=== PATIENT | female | born 1940 | race Caucasian/White ===

== ENCOUNTER 2017-09-01 18:07 | Inpatient (IN) | payer OTHER ==
--- NOTE | 2017-09-01 19:04 | PDOC ---
History of Present Illness - General Chief Complaint: Coffee Ground Emesis Stated Complaint: coffee ground Time Seen by Provider: 09/01/17 19:03 - History of Present Illness Initial Comments: 09/01/17 19:28 Ms. Morgan is a 76 yo female w/ pmh of dementia, alzheimer's, anxiety, and major depressive disorder who presents from [facility] after reported 2 episodes of dark vomiting earlier today. Upon history she alternates between reporting stomach pain and saying that she feels no pain. She vomited dark watery colored coffee ground emesis during history onto the floor. The patient denies chest pain, shortness of breath, headache and dizziness. Denies fever, chills, diarrhea and constipation. Denies dysuria, frequency, urgency and hematuria . Allergies: NKDA Past History - Past Medical History Allergies/Adverse Reactions: Allergies Allergy/AdvReac Type Severity Reaction Status Date / Time No Known Allergies Allergy Verified 09/01/17 20:12 - Suicide/Smoking/Psychosocial Hx Smoking History: Unknown if ever smoked Have you smoked in the past 12 months: No Hx Alcohol Use: No Drug/Substance Use Hx: No Review of Systems - Review of Systems Comments:: 09/01/17 19:43 GENERAL/CONSTITUTIONAL: No fever or chills. No weakness. HEAD, EYES, EARS, NOSE AND THROAT: No change in vision. No ear pain or discharge. No sore throat. CARDIOVASCULAR: No chest pain or shortness of breath RESPIRATORY: No cough, wheezing, or hemoptysis. GASTROINTESTINAL: +Vomiting ealier today. Unclear if complicated by nausea or not. No reported diarrhea or constipation. GENITOURINARY: No dysuria, frequency, or change in urination. MUSCULOSKELETAL: No joint or muscle swelling or pain. No neck or back pain. SKIN: No rash NEUROLOGIC: No headache, vertigo, loss of consciousness, or change in strength/ sensation. ENDOCRINE: No increased thirst. No abnormal weight change HEMATOLOGIC/LYMPHATIC: No anemia, easy bleeding, or history of blood clots. ALLERGIC/IMMUNOLOGIC: No hives or skin allergy. *Physical Exam - Vital Signs Last Vital Signs Temp Pulse Resp BP Pulse Ox 134/78 96 09/01/17 18:29 09/01/17 18:29 - Physical Exam Comments: 09/01/17 19:43 GENERAL: Awake, alert, and oriented to baseline per son, in no acute distress HEAD: No signs of trauma, normocephalic, atraumatic EYES: PERRLA, EOMI, sclera anicteric, conjunctiva clear ENT: Auricles normal inspection, hearing grossly normal, nares patent, oropharynx clear without exudates. Moist mucosa NECK: Normal ROM, supple, no lymphadenopathy, JVD, or masses LUNGS: No distress, speaks full sentences, clear to auscultation bilaterally HEART: Regular rate and rhythm, normal S1 and S2, no murmurs, rubs or gallops, peripheral pulses normal and equal bilaterally. ABDOMEN: Soft, nontender, normoactive bowel sounds. No guarding, no rebound. No masses EXTREMITIES: Normal inspection, Normal range of motion, no edema. No clubbing or cyanosis. NEUROLOGICAL: Cranial nerves II through XII grossly intact. Normal speech, normal gait, no focal sensorimotor deficits SKIN: Warm, Dry, normal turgor, no rashes or lesions noted. ED Treatment Course - LABORATORY CBC & Chemistry Diagram: 09/01/17 19:36 09/01/17 21:41 Medical Decision Making - Medical Decision Making 09/01/17 20:17 Ms. Morgan is a 76 yo female w/ pmh as described who presents w/ symptoms concerning for upper GI bleed. Pre-op labs sent - stool occult blood negative. 09/01/17 22:22 Labs grossly wnl as below. Admitting patient for GI bleed workup inpatient. Laboratory Results - last 24 hr 09/01/1718 18 19:36 19:36 19:36 WBC 11.7 H RBC 4.67 Hgb 14.0 Hct 43.4 MCV 92.8 MCH 30.0 MCHC 32.3 RDW 14.1 Plt Count 250 MPV 9.3 Neutrophils % No Result Required. Neutrophils % (Manual) 93.0 H* Lymphocytes % No Result Required. Lymphocytes % (Manual) 5.0 L Monocytes % (Manual) 2 L Platelet Estimate Adequate Platelet Comment No clotting detected PT with INR 12.00 H INR 1.06 PTT (Actin FS) 29.8 Sodium Cancelled Potassium Cancelled Chloride Cancelled Carbon Dioxide Cancelled Anion Gap Cancelled BUN Cancelled Creatinine Cancelled Creat Clearance w eGFR Cancelled Random Glucose Cancelled Calcium Cancelled Total Bilirubin Cancelled AST Cancelled ALT Cancelled Alkaline Phosphatase Cancelled Total Protein Cancelled Albumin Cancelled Stool Occult Blood Blood Type Antibody Screen 09/01/17 09/01/17 09/01/17 19:36 19:40 21:41 WBC RBC Hgb Hct MCV MCH MCHC RDW Plt Count MPV Neutrophils % Neutrophils % (Manual) Lymphocytes % Lymphocytes % (Manual) Monocytes % (Manual) Platelet Estimate Platelet Comment PT with INR INR PTT (Actin FS) Sodium 143 Potassium 4.0 Chloride 106 Carbon Dioxide 31 Anion Gap 6 L BUN 14 Creatinine 0.9 Creat Clearance w eGFR > 60 Random Glucose 176 H Calcium 8.5 Total Bilirubin 0.6 AST 16 ALT 13 Alkaline Phosphatase 68 Total Protein 6.6 Albumin 3.8 Stool Occult Blood Negative Blood Type O POSITIVE Antibody Screen Negative *DC/Admit/Observation/Transfer Diagnosis at time of Disposition: Upper GI bleed - Discharge Dispostion Admit: Yes - Referrals Referrals: Shankar Arreguin [Primary Care Provider] - - Patient Instructions - Post Discharge Activity
--- NOTE | 2017-09-01 19:10 | PDOC ---
Attending Attestation - Resident Resident Name: caleb
[2017-09-01 19:42] LABS: WHITE BLOOD COUNT 11.7 K/mm3 (4.0-10.0)
[2017-09-01 19:48] LABS: HEMATOCRIT 43.4 % (32.4-45.2); MCHC 32.3 g/dl (32.0-36.0); MEAN CELL VOLUME 92.8 fl (80-96); MEAN PLT VOLUME 9.3 fl (7.5-11.1); PLATELET COUNT 250 K/MM3 (134-434); RBC 4.67 M/mm3 (3.60-5.2); RDW 14.1 % (11.6-15.6)
[2017-09-01] MEDS ORDERED: PANTOPRAZOLE SODIUM 40 MG VIAL IVPB ONE (20:01)
[2017-09-01] MEDS ORDERED: PANTOPRAZOLE SODIUM 80 MG in SODIUM CHLORIDE 100 ML IVPB SCH (20:15)
[2017-09-01 20:19] LABS: INR 1.06 (0.82-1.09)
[2017-09-01] MEDS ORDERED: ONDANSETRON 4 MG/2 ML VIAL IVPUSH ONE (20:19)
[2017-09-01 20:22] LABS: ACTIVATED PTT 29.8 SECONDS (26.9-34.4)
[2017-09-01] MEDS ORDERED: ONDANSETRON 4 MG/2 ML VIAL ONE (20:30)
[2017-09-01 21:37] LABS: PLATELET ESTIMATE ADEQUATE
[2017-09-01] MEDS: PANTOPRAZOLE SODIUM 160 MG in DEXTROSE 5%-WATER - 290 ML IVPB SCH (21:39)
[2017-09-01 22:11] LABS: ALBUMIN 3.8 g/dl (3.4-5.0); ANION GAP 6 (8-16); BILIRUBIN,TOTAL 0.6 mg/dL (0.2-1.0); BLOOD UREA NITROGEN 14 mg/dL (7-18); CALCIUM 8.5 mg/dL (8.5-10.1); CHLORIDE 106 mmol/L (98-107); CO2 31 mmol/L (21-32); CREATININE 0.9 mg/dL (0.55-1.02); GLUCOSE,RANDOM 176 mg/dL (74-106); SGPT/ALT 13 U/L (12-78); SODIUM 143 mmol/L (136-145); TOT PROT 6.6 g/dl (6.4-8.2)
[2017-09-01 22:12] LABS: ALK PHOS 68 U/L (45-117)
[2017-09-01 22:14] LABS: SGOT/AST 16 U/L (15-37)
--- NOTE | 2017-09-01 22:40 | PN ---
Teaching Attending Note Name of Resident: Shaye Ag ATTENDING PHYSICIAN STATEMENT I saw and evaluated the patient. I reviewed the resident's note and discussed the case with the resident. I agree with the resident's findings and plan as documented. SUBJECTIVE: 76 F with pmhx. of dementia, alzheimer's anxiety, and MDD who presents from [facility] after two episodes of dark vomiting. Unable to obtain any history from patient due to dementia. OBJECTIVE: Physical: VS: Vital Signs Period Temp Pulse Resp BP Sys/Guan Pulse Ox Last 24 Hr 134/78 96 GEN: NAD, Resting in bed, AAOx3 HEENT: NCAT, PERRL, throat without erythema or exudates CARD: RRR S1,S2 RESP: CTAB ABD: BSx4, NTD to palpation EXT: - C/C/E RECTAL: Refused CBCD WBC 11.7 K/mm3 (4.0-10.0) H 09/01/17 19:36 RBC 4.67 M/mm3 (3.60-5.2) 09/01/17 19:36 Hgb 14.0 GM/dL (10.7-15.3) 09/01/17 19:36 Hct 43.4 % (32.4-45.2) 09/01/17 19:36 MCV 92.8 fl (80-96) 09/01/17 19:36 MCHC 32.3 g/dl (32.0-36.0) 09/01/17 19:36 RDW 14.1 % (11.6-15.6) 09/01/17 19:36 Plt Count 250 K/MM3 (134-434) 09/01/17 19:36 MPV 9.3 fl (7.5-11.1) 09/01/17 19:36 CMP Sodium 143 mmol/L (136-145) 09/01/17 21:41 Potassium 4.0 mmol/L (3.5-5.1) 09/01/17 21:41 Chloride 106 mmol/L (98-107) 09/01/17 21:41 Carbon Dioxide 31 mmol/L (21-32) 09/01/17 21:41 Anion Gap 6 (8-16) L 09/01/17 21:41 BUN 14 mg/dL (7-18) 09/01/17 21:41 Creatinine 0.9 mg/dL (0.55-1.02) 09/01/17 21:41 Creat Clearance w eGFR > 60 (>60) 09/01/17 21:41 Random Glucose 176 mg/dL (74-106) H 09/01/17 21:41 Calcium 8.5 mg/dL (8.5-10.1) 09/01/17 21:41 Total Bilirubin 0.6 mg/dL (0.2-1.0) 09/01/17 21:41 AST 16 U/L (15-37) 09/01/17 21:41 ALT 13 U/L (12-78) 09/01/17 21:41 Alkaline Phosphatase 68 U/L (45-117) 09/01/17 21:41 Total Protein 6.6 g/dl (6.4-8.2) 09/01/17 21:41 Albumin 3.8 g/dl (3.4-5.0) 09/01/17 21:41 CXR:PENDING EKG:NSR QtC 429, NO ST-T changes ASSESSMENT AND PLAN: 76 F with pmhx. of dementia, alzheimer's anxiety, and MDD who presents from [facility] after two episodes of dark vomiting, being admitted for UGIB 1.) UGIB? - NPO - 2 Large bore IV - Protonix GTT - CBC q 8 - Coags - Type & Screen - GI Consult 2.) Alzheimer'S Dementia - C/W Namenda/Donezepil 3.) MDD - C/W Lexapro Admit to [email or web address]
--- NOTE | 2017-09-01 23:11 | HP ---
CHIEF COMPLAINT: Coffee ground emesis x1 day PCP: Dr Trudi Chaparro HISTORY OF PRESENT ILLNESS: Pt is a poor historian, appears confused at baseline. 76 yo f with PMHx of dysphagia, dementia, alzheimer's, anxiety, MDD, insomnia, malignant neoplasm of breast, presenting from [facility] following 3 episodes of coffee ground emesis between 4.00-4.30pm today. Said to have had another episode of watery black vomit in the ED while being seen. Per ER resident, when he saw her, her sons were by her side. Pt appears confused , AAOx 1 (self) and is unable to provide history. Pt said that she did vomit and did not want her tummy to be touched. Pt is not noted to be on any anticoagulation. Per pt records from [facility]- She is DNR. Amaury Morgan (son) is emergency contact at [phone] and daughter (Nohelia Nolan)- [phone] ROS could not be obtained. ER course was notable for: (1) CMP, CBC (N-93,L-5), PT/INR, INR, PTT, CXR , FOBT--ve (2)Stable vitals (3) Pantoprazole iv then drip, zofran Recent Travel: PAST MEDICAL HISTORY: dysphagia, dementia, alzheimer's, anxiety, MDD, insomnia, malignant neoplasm of breast PAST SURGICAL HISTORY: Social History: Smoking: Alcohol: Drugs: Family History: Allergies No Known Allergies Allergy (Verified 09/01/17 20:12) HOME MEDICATIONS: REVIEW OF SYSTEMS : Not possible with pt's dementia with no one by bedside PHYSICAL EXAMINATION Vital Signs - 24 hr 09/01/17 18:29 Blood Pressure 134/78 O2 Sat by Pulse 96 Oximetry (%) GENERAL: Awake, alert, AAOx1 (person), confused, verbose. HEAD: Normal with no signs of trauma. EYES: Pupils equal, round and reactive to light, extraocular movements intact, sclera anicteric, conjunctiva clear. EARS, NOSE, THROAT: oropharynx clear without exudates. Moist mucous membranes, no obvious bleeding LUNGS: Breath sounds equal, clear to auscultation bilaterally. HEART: Regular rate and rhythm, normal S1 and S2 ABDOMEN: Soft, nontender, not distended, normoactive bowel sounds, no guarding, no rebound, no masses. MUSCULOSKELETAL: Normal range of motion at all joints. No bony deformities or tenderness. No CVA tenderness. UPPER EXTREMITIES: 2+ pulses, warm, well-perfused. No cyanosis. No clubbing. No peripheral edema. LOWER EXTREMITIES: 2+ pulses, warm, well-perfused. No calf tenderness. No peripheral edema. NEUROLOGICAL: Confused, pressured speech. gait not observed. PSYCHIATRIC: Confused and talkative Laboratory Results - last 24 hr 09/01/17 09/01/17 09/01/17 19:36 19:36 19:36 WBC 11.7 H RBC 4.67 Hgb 14.0 Hct 43.4 MCV 92.8 MCH 30.0 MCHC 32.3 RDW 14.1 Plt Count 250 MPV 9.3 Neutrophils % No Result Required. Neutrophils % (Manual) 93.0 H* Lymphocytes % No Result Required. Lymphocytes % (Manual) 5.0 L Monocytes % (Manual) 2 L Platelet Estimate Adequate Platelet Comment No clotting detected PT with INR 12.00 H INR 1.06 PTT (Actin FS) 29.8 Sodium Cancelled Potassium Cancelled Chloride Cancelled Carbon Dioxide Cancelled Anion Gap Cancelled BUN Cancelled Creatinine Cancelled Creat Clearance w eGFR Cancelled Random Glucose Cancelled Calcium Cancelled Total Bilirubin Cancelled AST Cancelled ALT Cancelled Alkaline Phosphatase Cancelled Total Protein Cancelled Albumin Cancelled Stool Occult Blood Blood Type Antibody Screen 09/01/1718 09/01/17 19:36 19:40 21:41 WBC RBC Hgb Hct MCV MCH MCHC RDW Plt Count MPV Neutrophils % Neutrophils % (Manual) Lymphocytes % Lymphocytes % (Manual) Monocytes % (Manual) Platelet Estimate Platelet Comment PT with INR INR PTT (Actin FS) Sodium 143 Potassium 4.0 Chloride 106 Carbon Dioxide 31 Anion Gap 6 L BUN 14 Creatinine 0.9 Creat Clearance w eGFR > 60 Random Glucose 176 H Calcium 8.5 Total Bilirubin 0.6 AST 16 ALT 13 Alkaline Phosphatase 68 Total Protein 6.6 Albumin 3.8 Stool Occult Blood Negative Blood Type O POSITIVE Antibody Screen Negative ASSESSMENT/PLAN: 76 yo f with PMHx of dysphagia, dementia, alzheimer's, anxiety, MDD, insomnia, malignant neoplasm of breast, presenting from [facility] following 3 episodes of coffee ground emesis between 4.00-4.30pm today UGI: Hx of 3 episodes of coffee ground emesis prior to presentation 1 episode of black liquid emesis at ED Prior hx could not be obtained FOBT- -ve NPO Stable vitals at presentation Iv Normal saline @75/hr Cont protonix gtt CBC Transfuse if Hgb <7 Type and screen GI consult- Dr Rey dysphagia: NPO for now dementia/alzheimer's: Namenda XR 28mg daily Donepezil 10mg daily Trazodone 25mg daily anxiety/MDD/insomnia melatonin 3mg HS Lorazepam 1mg HS Hx of malignant neoplasm of breast Monitor FEN: IV NS @75/hr NPO PPx: SCDs Hold heparin Dispo: Tele Code status- DNR Visit type - Emergency Visit Emergency Visit: Yes ED Registration Date: 09/01/17 Care time: The patient presented to the Emergency Department on the above date and was hospitalized for further evaluation of their emergent condition. - New Patient This patient is new to me today: Yes Date on this admission: 09/02/17 - Critical Care Critical Care patient: No
[2017-09-02] MEDS ORDERED: SODIUM CHLORIDE 1,000 ML IV SCH (01:00)
[2017-09-02] MEDS: SODIUM CHLORIDE 1,000 ML IV SCH (07:05)
--- NOTE | 2017-09-02 07:41 | MSN ---
Progress Note (short form) - Note Progress Note: Subjective: 76yo F with a history of Alzheimers dementia, MDD, anxiety disorder, dysphagia and malignant neoplasm of the breast who presented to ER from [facility] due to 3x coffee ground emesis and 1 episode of dark liquid emesis while in the ED. Patient was seen this morning. Patient is talkative, appears comfortable. Pleasant woman only alert to self. Patient said she had abdominal pain yesterday but feels better today and has no complaints. Objective: Last Vital Signs Temp Pulse Resp BP Pulse Ox 98.3 F 83 93/45 95 09/02/17 07:23 09/02/17 07:23 09/02/17 07:23 09/02/17 07:23 Intake & Output 08/30/17 08/31/17 09/01/17 09/02/17 23:59 23:59 23:59 23:59 Intake Total 100 Balance 100 Weight 150 lb General: Patient is alert and oriented only to self. Pleasant woman in no acute distress. HEENT: normocephalic, atraumatic. PERRL. Heart: RRR, no rubs, murmurs or gallops appreciated. Lungs: auscultated anteriorly and from the side, CTA b/l. no crackles or rhonci apprecaited. Abdomen: hyperactive bowel sounds throughout. soft, nontender to light palpation. tender to deep palpation on the upper quadrants. Extremities: 2+ pulses B/L on UE and LE. Could not follow commands for motor strength testing. sensation grossly intact throughout. No edema noted. CBC, BMP 09/02/17 07:18 Abnormal Lab Results 09/01/17 09/01/17 09/01/17 19:36 19:36 21:41 WBC 11.7 H Neutrophils % Neutrophils % (Manual) 93.0 H* Lymphocytes % Lymphocytes % (Manual) 5.0 L Monocytes % (Manual) 2 L PT with INR 12.00 H Anion Gap 6 L Random Glucose 176 H 09/02/17 07:18 WBC 11.5 H Neutrophils % 84.1 H Neutrophils % (Manual) Lymphocytes % 7.6 L Lymphocytes % (Manual) Monocytes % (Manual) PT with INR Anion Gap Random Glucose Imaging CXR 09/01/17: no acute pathology. prominent mediastinum. EKG 09/01: normal sinus. QTc 429 Home Medications Medication Instructions Recorded Acetaminophen [Tylenol] 650 mg PO Q6H PRN 09/02/17 Cholecalciferol (Vitamin D3) 1,000 unit PO DAILY 09/02/17 [Vitamin D3] Donepezil HCl [Aricept -] 10 mg PO HS 09/02/17 Escitalopram Oxalate [Lexapro -] 10 mg PO DAILY 09/02/17 LORazepam [Ativan] 1 mg PO PC 09/02/17 Melatonin 3 mg PO HS 09/02/17 Memantine HCl [Namenda Xr] 28 mg PO DAILY 09/02/17 Methyl Salicylate/Menth/Camph 120 gm TP DAILY 09/02/17 [Muscle Rub Ultra Str Cream] Mineral Oil/Hydrophil Petrolat 396 gm TP BID 09/02/17 [Aquaphor Ointment] Trazodone HCl 25 mg PO DAILY 09/02/17 Current Medications Cholecalciferol (Vitamin D3 -) 1,000 unit PO DAILY [facility] Donepezil HCl (Aricept -) 10 mg PO HS [facility] Escitalopram Oxalate (Lexapro -) 10 mg PO DAILY [facility] Pantoprazole Sodium 160 mg/ (Dextrose) 290 mls @ 14.5 mls/hr IVPB Q20H [facility] Last Admin: 09/01/17 21:39 Dose: 14.5 mls/hr Sodium Chloride (Normal Saline -) 1,000 mls @ 75 mls/hr IV ASDIR [facility] Lorazepam (Ativan -) 1 mg PO PC [facility] Melatonin (Melatonin) 3 mg PO HS [facility] Non-Formulary Medication (Memantine Hcl [Namenda Xr]) 28 mg PO DAILY [facility] Non-Formulary Medication (Methyl Salicylate/Menth/Camph [Muscle Rub Ultra Str Cream]) 120 gm TP DAILY [facility] Non-Formulary Medication (Mineral Oil/Hydrophil Petrolat [Aquaphor Ointment]) 396 gm TP BID [facility] Trazodone HCl (Desyrel -) 25 mg PO DAILY [facility] Assessment/ Plan: 76 yo F with a history of Alzheimers dementia, MDD, anxiety disorder, dysphagia and malignant neoplasm of the breast admitted for upper GI bleed. # dark emesis x3 secondary to upper GI bleed. - FOBT negative - protonix - bp stable, H&H stable. - GI consult - endoscopy with biopsy? # hyperglycemia - ISS, BGM # Alzheimers dementia - Namenda 28mg - Donepezil 10mg # anxiety/ MDD/ insomnia - lexapro 10mg - trazodone 12.5 mg - ativan 1mg - melatonin 3mg # FEN - F: NS @75mls/hr - E: wnl - N: NPO due to dysphagia. was on mechanical soft diet at [facility].
[2017-09-02 07:47] LABS: BASO % 0.1 % (0-2.0); HEMATOCRIT 40.8 % (32.4-45.2); HEMOGLOBIN 13.1 GM/dL (10.7-15.3); LYMPH % 7.6 % (8-40); MCH 29.9 pg (25.7-33.7); MCHC 32.1 g/dl (32.0-36.0); MEAN PLT VOLUME 8.3 fl (7.5-11.1); MONO % 8.2 % (3.8-10.2); NEUT % 84.1 % (42.8-82.8); PLATELET COUNT 246 K/MM3 (134-434); RBC 4.39 M/mm3 (3.60-5.2); WHITE BLOOD COUNT 11.5 K/mm3 (4.0-10.0)
[2017-09-02 08:05] LABS: CHLORIDE 105 mmol/L (98-107); POTASSIUM 3.5 mmol/L (3.5-5.1); SODIUM 144 mmol/L (136-145)
[2017-09-02 08:11] LABS: ALBUMIN 3.4 g/dl (3.4-5.0); ALK PHOS 62 U/L (45-117); ANION GAP 9 (8-16); BILIRUBIN,TOTAL 0.6 mg/dL (0.2-1.0); BLOOD UREA NITROGEN 18 mg/dL (7-18); CALCIUM 8.7 mg/dL (8.5-10.1); CO2 30 mmol/L (21-32); CREATININE 0.8 mg/dL (0.55-1.02); GLUCOSE,RANDOM 119 mg/dL (74-106); MAGNESIUM 3.2 mg/dL (1.8-2.4); PHOSPHOROUS 2.9 mg/dL (2.5-4.9); SGOT/AST 25 U/L (15-37); SGPT/ALT 15 U/L (12-78); TOT PROT 6.2 g/dl (6.4-8.2)
--- NOTE | 2017-09-02 08:53 | EKG ---
Test Reason : Blood Pressure : / mmHG Vent. Rate : 076 BPM Atrial Rate : 076 BPM P-R Int : 188 ms QRS Dur : 080 ms QT Int : 382 ms P-R-T Axes : 027 029 016 degrees QTc Int : 429 ms POOR DATA QUALITY, INTERPRETATION MAY BE ADVERSELY AFFECTED NORMAL SINUS RHYTHM NORMAL ECG NO PREVIOUS ECGS AVAILABLE Confirmed by Bro Snow MD ([id number]) on 09/02/2017 8:52:30 AM Referred By: Confirmed By:Bro Snow MD
[2017-09-02] MEDS ORDERED: LORazepam 0.5 MG TABLET ONE ×2 (08:56→13:52)
[2017-09-02] MEDS: LORazepam 1 MG TABLET PO SCH ×4 (09:06→22:22)
[2017-09-02] MEDS: ESCITALOPRAM OXALATE 10 MG TABLET (FP) PO SCH (09:06)
[2017-09-02] MEDS: CHOLECALCIFEROL (VITAMIN D3) 1,000 UNIT TABLET (FP) PO SCH (09:06)
[2017-09-02] MEDS: MINERAL OIL/PET HY-PHL TOPICAL OINTMENT 454 GM JAR TP SCH ×2 (09:45→22:28)
[2017-09-02] MEDS: traZODone HCL 50 MG TABLET (FP) PO SCH (09:45)
[2017-09-02] MEDS ORDERED: PATIENT'S OWN MEDICATION (NON-FORMULARY) (Memantine Hcl [Namenda Xr] 28 MG) PO SCH (10:00)
[2017-09-02 10:04] LABS: INR 1.07 (0.82-1.09); PROTHROMBIN TIME (PATIENT) 12.1 SEC (9.98-11.88)
[2017-09-02 10:06] LABS: ACTIVATED PTT 27.5 SECONDS (26.9-34.4)
--- NOTE | 2017-09-02 13:50 | CON.GI ---
Consult Consult Specialty:: GI: Dr. Johnston covering for Dr. Rey Referred by:: Hospitalist Reason for Consultation:: Vomiting - History of Present Illness Chief Complaint: Patient with dementia: She is confused. States that she was sick and feels better History of Present Illness: 76F transferred from [place] for coffee ground emesis. Patient has a history of dementia and tells me today that "she felt sick but feels better now". She said her stomach was bothering her before but no longer does. Initial Hgb was 14 yesterday afternoon, 13 this morning. her nurse described her stool as foul smelling. Her son Amaury believes that Ms. Morgan had a colonoscopy in the past but does not recall her having an upper endoscopy. - History Source History Provided By: Patient, Medical Record Limitations to Obtaining History: Dementia - Past Medical History Psych: Yes: Anxiety, Depression - Alcohol/Substance Use Hx Alcohol Use: Yes (occasional in past) History of Substance Use: reports: None - Smoking History Smoking history: Former smoker (in past) Have you smoked in the past 12 months: No - Social History Usual Living Arrangement: Skilled Nursing ADL: Support Services Place of : [facility] History of Recent Travel: No Home Medications - Allergies Allergies/Adverse Reactions: Allergies Allergy/AdvReac Type Severity Reaction Status Date / Time No Known Allergies Allergy Verified 09/01/17 20:12 - Home Medications Home Medications: Ambulatory Orders Acetaminophen [Tylenol] 650 mg PO Q6H PRN 09/02/17 Cholecalciferol (Vitamin D3) [Vitamin D3] 1,000 unit PO DAILY 09/02/17 Donepezil HCl [Aricept -] 10 mg PO HS 09/02/17 Escitalopram Oxalate [Lexapro -] 10 mg PO DAILY 09/02/17 LORazepam [Ativan] 1 mg PO PC 09/02/17 Melatonin 3 mg PO HS 09/02/17 Memantine HCl [Namenda Xr] 28 mg PO DAILY 09/02/17 Methyl Salicylate/Menth/Camph [Muscle Rub Ultra Str Cream] 120 gm TP DAILY 09/02 Mineral Oil/Hydrophil Petrolat [Aquaphor Ointment] 396 gm TP BID 09/02/17 Trazodone HCl 25 mg PO DAILY 09/02/17 Family Disease History - Family Disease History Family History: Unable to Obtain Review of Systems - Review of Systems Constitutional: denies: Chills, Fever Cardiovascular: denies: Chest Pain Respiratory: denies: Cough Gastrointestinal: reports: Abdominal Pain, Nausea, Vomiting. denies: Melena Physical Exam-GI Vital Signs: Vital Signs Temperature 98.1 F 09/02/17 08:07 Pulse Rate 78 09/02/17 08:07 Respiratory Rate 17 09/02/17 08:07 Blood Pressure 110/62 09/02/17 08:07 O2 Sat by Pulse Oximetry (%) 97 09/02/17 08:07 Constitutional: Yes: Calm Eyes: No: Sclera Icterus Cardiovascular: Yes: Regular Rate and Rhythm Respiratory: Yes: CTA Bilaterally Gastrointestinal Inspection: No: Distention ...Auscultate: Yes: Normoactive Bowel Sounds ...Palpate: No: Hepatomegaly, Splenomegaly, Tenderness ...Percussion: No: Tympanitic ...Rectal Exam: Yes: Other (No external lesion, dark brown stool in rectal vault , guaiac +) Edema: Yes (trace LE edema) Labs: CBC, BMP 09/02/17 07:18 09/02/17 07:18 INR, PTT INR 1.07 (0.82-1.09) 09/02/17 07:18 Imaging - Results Chest X-ray: Report Reviewed (prominent mediastinum with tracheal deviation to the right) Problem List - Problems (1) Coffee ground emesis Assessment/Plan: No further vomiting and patient appears comfortable Clear liquids IV hydration Ordered CT scan of the abdomen to assess for obstructive pattern Pending above, Upper endoscopy to be considered. Discussed plan with Amaury her son, via telephone. Discussed EGD followed potentially by colonoscopy. Discussed potential risks of the procedures like but not limited to bleeding, perforation requiring surgery to repair, infection and sedation medication effects all of which could be potentially life threatening. He has agreed to the procedures. Continue PPI therapy Finding of widened medistinum on admission CXR with tracheal deviation. ? unclear etiology or significance. D/W Dr. Capma. will eval futher prior to EGD. For CT scan chest Monitor H/H and for signs of active bleeding Code(s): K92.0 - HEMATEMESIS
[2017-09-02 14:58] LABS: BASO % 0.7 % (0-2.0); EOS % 0.5 % (0-4.5); HEMATOCRIT 40.1 % (32.4-45.2); HEMOGLOBIN 12.7 GM/dL (10.7-15.3); LYMPH % 13.3 % (8-40); MCH 29.4 pg (25.7-33.7); MCHC 31.5 g/dl (32.0-36.0); MEAN CELL VOLUME 93.1 fl (80-96); MEAN PLT VOLUME 7.9 fl (7.5-11.1); MONO % 8.8 % (3.8-10.2); NEUT % 76.7 % (42.8-82.8); PLATELET COUNT 222 K/MM3 (134-434); RBC 4.31 M/mm3 (3.60-5.2); WHITE BLOOD COUNT 12.6 K/mm3 (4.0-10.0)
[2017-09-02 15:58] VITALS: BMI 26.9
[2017-09-02] MEDS: PANTOPRAZOLE SODIUM 160 MG in DEXTROSE 5%-WATER - 290 ML IVPB SCH (18:35)
--- NOTE | 2017-09-02 19:29 | PN ---
Progress Note, Physician History of Present Illness: no further vomiting no distress - Current Medication List Current Medications: Active Medications Cholecalciferol (Vitamin D3 -) 1,000 unit PO DAILY [facility] Last Admin: 09/02/17 09:06 Dose: 1,000 unit Donepezil HCl (Aricept -) 10 mg PO HS [facility] Emollient Ointment (Aquaphor -) 1 applic TP BID [facility] Last Admin: 09/02/17 09:45 Dose: Not Given Escitalopram Oxalate (Lexapro -) 10 mg PO DAILY [facility] Last Admin: 09/02/17 09:06 Dose: 10 mg Pantoprazole Sodium 160 mg/ (Dextrose) 290 mls @ 14.5 mls/hr IVPB Q20H [facility] Last Admin: 09/02/17 18:35 Dose: 14.5 mls/hr Sodium Chloride (Normal Saline -) 1,000 mls @ 75 mls/hr IV ASDIR [facility] Last Admin: 09/02/17 07:05 Dose: 75 mls/hr Lorazepam (Ativan -) 1 mg PO PC [facility] Last Admin: 09/02/17 18:57 Dose: Not Given Melatonin (Melatonin) 3 mg PO HS [facility] Non-Formulary Medication (Memantine Hcl [Namenda Xr]) 28 mg PO DAILY [facility] Non-Formulary Medication (Methyl Salicylate/Menth/Camph [Muscle Rub Ultra Str Cream]) 120 gm TP DAILY [facility] Trazodone HCl (Desyrel -) 25 mg PO DAILY [facility] Last Admin: 09/02/17 09:45 Dose: 25 mg - Objective Vital Signs: Vital Signs Temperature 98.2 F 09/02/17 15:59 Pulse Rate 61 09/02/17 15:59 Respiratory Rate 15 09/02/17 15:59 Blood Pressure 93/67 09/02/17 15:59 O2 Sat by Pulse Oximetry (%) 93 L 09/02/17 15:43 Constitutional: Yes: No Distress Cardiovascular: Yes: Regular Rate and Rhythm Respiratory: Yes: CTA Bilaterally Gastrointestinal: Yes: Normal Bowel Sounds, Soft. No: Tenderness Edema: No Labs: CBC, BMP 09/02/17 14:48 09/02/17 07:18 INR, PTT INR 1.07 (0.82-1.09) 09/02/17 07:18 Problem List - Problems (1) Coffee ground emesis Code(s): K92.0 - HEMATEMESIS (2) Upper GI bleed Code(s): K92.2 - GASTROINTESTINAL HEMORRHAGE, UNSPECIFIED (3) Dementia Code(s): F03.90 - UNSPECIFIED DEMENTIA WITHOUT BEHAVIORAL DISTURBANCE Assessment/Plan NPO Iv fluids GI eval noted--- will need Endoscopy continue with PO meds CT ordered
[2017-09-02] MEDS ORDERED: PT OWN MED DRAWER 7, Y5N ONE (21:58)
[2017-09-02] MEDS: DONEPEZIL HCL 10 MG TABLET (FP) PO SCH (22:22)
[2017-09-02] MEDS: MELATONIN 1 MG TABLET PO SCH (22:58)
[2017-09-03 08:07] LABS: HEMOGLOBIN 12.5 GM/dL (10.7-15.3); MCHC 32.2 g/dl (32.0-36.0); MEAN CELL VOLUME 93.4 fl (80-96); MEAN PLT VOLUME 8.3 fl (7.5-11.1); PLATELET COUNT 205 K/MM3 (134-434); RBC 4.18 M/mm3 (3.60-5.2); RDW 14.3 % (11.6-15.6); WHITE BLOOD COUNT 8.2 K/mm3 (4.0-10.0)
[2017-09-03 08:38] LABS: CHLORIDE 106 mmol/L (98-107); POTASSIUM 3.7 mmol/L (3.5-5.1); SODIUM 144 mmol/L (136-145)
[2017-09-03 08:49] LABS: ALK PHOS 53 U/L (45-117); ANION GAP 9 (8-16); BILIRUBIN,TOTAL 0.8 mg/dL (0.2-1.0); BLOOD UREA NITROGEN 15 mg/dL (7-18); CALCIUM 8.3 mg/dL (8.5-10.1); CO2 29 mmol/L (21-32); CREATININE 0.8 mg/dL (0.55-1.02); GLUCOSE,RANDOM 91 mg/dL (74-106); SGOT/AST 20 U/L (15-37); SGPT/ALT 13 U/L (12-78); TOT PROT 5.5 g/dl (6.4-8.2)
[2017-09-03] MEDS ORDERED: PT OWN MED DRAWER 7, Y5N ONE (10:04)
[2017-09-03] MEDS: LORazepam 1 MG TABLET PO SCH ×3 (10:06→18:11)
[2017-09-03] MEDS: traZODone HCL 50 MG TABLET (FP) PO SCH (10:06)
[2017-09-03] MEDS: CHOLECALCIFEROL (VITAMIN D3) 1,000 UNIT TABLET (FP) PO SCH (10:07)
[2017-09-03] MEDS: ESCITALOPRAM OXALATE 10 MG TABLET (FP) PO SCH (10:07)
[2017-09-03] MEDS ORDERED: LIDOCAINE HCL/PF 1% SDV 5ML VIAL ONE (10:29)
[2017-09-03] MEDS ORDERED: PROPOFOL 20 ML ONE (10:29)
--- NOTE | 2017-09-03 10:40 | PN ---
Progress Note (short form) - Note Progress Note: CT scan not officially read yet however appears to be a large paraesophageal hernia. Discussed findings with her son Amaury. Discussed that surgeon will come to see her regarding this hernia. He also agreed that DNR will be suspended during procedure. Problem List - Problems (1) Coffee ground emesis Code(s): K92.0 - HEMATEMESIS
--- NOTE | 2017-09-03 11:09 | CONSULT ---
Consult Consult Specialty:: Surgery Reason for Consultation:: Paraesophageal hernia - History of Present Illness History of Present Illness: 76 female with coffee ground emesis Noted to have a paraesophageal hernia on CT No pain History difficult to attain due to medical comorbidities - History Source History Provided By: Patient, Medical Record Limitations to Obtaining History: Dementia - Past Medical History Psych: Yes: Anxiety, Depression - Alcohol/Substance Use Hx Alcohol Use: Yes (occasional in past) History of Substance Use: reports: None - Smoking History Smoking history: Former smoker Have you smoked in the past 12 months: No - Social History Usual Living Arrangement: Prison ADL: Support Services History of Recent Travel: No Home Medications - Allergies Allergies/Adverse Reactions: Allergies Allergy/AdvReac Type Severity Reaction Status Date / Time No Known Allergies Allergy Verified 09/01/17 20:12 - Home Medications Home Medications: Ambulatory Orders Acetaminophen [Tylenol] 650 mg PO Q6H PRN 09/02/17 Cholecalciferol (Vitamin D3) [Vitamin D3] 1,000 unit PO DAILY 09/02/17 Donepezil HCl [Aricept -] 10 mg PO HS 09/02/17 Escitalopram Oxalate [Lexapro -] 10 mg PO DAILY 09/02/17 LORazepam [Ativan] 1 mg PO PC 09/02/17 Melatonin 3 mg PO HS 09/02/17 Memantine HCl [Namenda Xr] 28 mg PO DAILY 09/02/17 Methyl Salicylate/Menth/Camph [Muscle Rub Ultra Str Cream] 120 gm TP DAILY 09/02 Mineral Oil/Hydrophil Petrolat [Aquaphor Ointment] 396 gm TP BID 09/02/17 Trazodone HCl 25 mg PO DAILY 09/02/17 Review of Systems Unable to obtain ROS, reason: Demetia Physical Exam Vital Signs: Vital Signs Temperature 98.7 F 09/03/17 07:00 Pulse Rate 79 09/03/17 07:00 Respiratory Rate 21 09/03/17 07:00 Blood Pressure 101/73 09/03/17 07:00 O2 Sat by Pulse Oximetry (%) 95 09/02/17 21:00 Constitutional: Yes: Calm Cardiovascular: Yes: WNL Respiratory: Yes: WNL Gastrointestinal: Yes: Soft. No: Distention, Tenderness, Tenderness, Rebound Neurological: Yes: Alert Labs: CBC, BMP 09/03/17 07:21 09/03/17 07:21 Imaging - Results Cat Scan: Report Reviewed, Image Reviewed Problem List - Problems (1) Paraesophageal hernia Code(s): K44.9 - DIAPHRAGMATIC HERNIA WITHOUT OBSTRUCTION OR GANGRENE Assessment/Plan Awaiting Will discuss with family regarding options
--- NOTE | 2017-09-03 11:37 | PN ---
Progress Note (short form) - Note Progress Note: EGD report placed in procedural section of physical chart and to be scanned into [employer] Problem List - Problems (1) Coffee ground emesis Code(s): K92.0 - HEMATEMESIS
--- NOTE | 2017-09-03 12:48 | PN ---
Progress Note, Physician Chief Complaint: came back form Endo No complaints - Current Medication List Current Medications: Active Medications Cholecalciferol (Vitamin D3 -) 1,000 unit PO DAILY [facility] Last Admin: 09/03/17 10:07 Dose: 1,000 unit Donepezil HCl (Aricept -) 10 mg PO HS [facility] Last Admin: 09/02/17 22:22 Dose: 10 mg Emollient Ointment (Aquaphor -) 1 applic TP BID [facility] Last Admin: 09/02/17 22:28 Dose: Not Given Escitalopram Oxalate (Lexapro -) 10 mg PO DAILY [facility] Last Admin: 09/03/17 10:07 Dose: 10 mg Sodium Chloride (Normal Saline -) 1,000 mls @ 75 mls/hr IV ASDIR [facility] Last Admin: 09/02/17 07:05 Dose: 75 mls/hr Lorazepam (Ativan -) 1 mg PO PC [facility] Last Admin: 09/03/17 10:06 Dose: 1 mg Melatonin (Melatonin) 3 mg PO HS [facility] Last Admin: 09/02/17 22:58 Dose: 3 mg Non-Formulary Medication (Memantine Hcl [Namenda Xr]) 28 mg PO DAILY [facility] Non-Formulary Medication (Methyl Salicylate/Menth/Camph [Muscle Rub Ultra Str Cream]) 120 gm TP DAILY [facility] Pantoprazole Sodium (Protonix -) 20 mg PO DAILY [facility] Trazodone HCl (Desyrel -) 25 mg PO DAILY [facility] Last Admin: 09/03/17 10:06 Dose: 25 mg - Objective Vital Signs: Vital Signs Temperature 98.4 F 09/03/17 12:22 Pulse Rate 53 L 09/03/17 12:22 Respiratory Rate 16 09/03/17 12:22 Blood Pressure 111/65 09/03/17 12:22 O2 Sat by Pulse Oximetry (%) 97 09/03/17 12:22 Constitutional: Yes: No Distress, Calm Cardiovascular: Yes: Regular Rate and Rhythm Respiratory: Yes: CTA Bilaterally Gastrointestinal: Yes: Normal Bowel Sounds, Soft. No: Tenderness Edema: No Labs: CBC, BMP 09/03/17 07:21 09/03/17 07:21 INR, PTT INR 1.07 (0.82-1.09) 09/02/17 07:18 Problem List - Problems (1) Coffee ground emesis Code(s): K92.0 - HEMATEMESIS (2) Paraesophageal hernia Code(s): K44.9 - DIAPHRAGMATIC HERNIA WITHOUT OBSTRUCTION OR GANGRENE (3) Upper GI bleed Code(s): K92.2 - GASTROINTESTINAL HEMORRHAGE, UNSPECIFIED Assessment/Plan PLAN pt has large hiatal hernia start diet - spoke with GI full liquid surgical eval continue with meds PPI
[2017-09-03] MEDS: MINERAL OIL/PET HY-PHL TOPICAL OINTMENT 454 GM JAR TP SCH ×2 (13:34→21:49)
--- NOTE | 2017-09-03 19:31 | PN ---
Progress Note (short form) - Note Progress Note: Discussed EGD findings with her son Amaury. He had a discussion with Dr. Castellanos regarding surgical repair of the paraesophageal hernia and they are opting for conservative therapy. We also discusssed that I found no bleeding source on her upper endoscopy to explain the blood noted in her stool. We discussed colonoscopy to exclude colon pathology such as bleeding blood vessel, polyps/ tumors of the colon such as colon cancer. We again discussed potential risks of the procedure like but not limited to bleeding, perforation requiring surgery to repair, infection, sedation medication effects all of which could be potentially life threatening. He stated that he would like his mother to get on her feet prior to committing her to another invasive procedure. I asked that he discuss things with his family. my contact information will be provided in the discharge plan if they decide to proceed. Problem List - Problems (1) Coffee ground emesis Code(s): K92.0 - HEMATEMESIS
[2017-09-03] MEDS: SODIUM CHLORIDE 1,000 ML IV SCH (21:47)
[2017-09-03] MEDS: MELATONIN 1 MG TABLET PO SCH (21:48)
[2017-09-03] MEDS: DONEPEZIL HCL 10 MG TABLET (FP) PO SCH (21:48)
--- NOTE | 2017-09-04 08:24 | PN ---
Progress Note (short form) - Note Progress Note: Had discussion with son and daughter regarding paraesophageal hernia and surgical options Due to her underlying age and medical comorbidities, they have opted to not have surgical repair and treat conservatively They understand the risks including strangulation, incarceration, perforation, obstruction and sepsis Vital Signs Period Temp Pulse Resp BP Sys/Guan Pulse Ox Last 24 Hr 98.0 F-99.2 F 53-78 15-20 109-136/61-80 95-97 Abd soft, NT, ND Continue conservative management Problem List - Problems (1) Paraesophageal hernia Code(s): K44.9 - DIAPHRAGMATIC HERNIA WITHOUT OBSTRUCTION OR GANGRENE
--- NOTE | 2017-09-04 09:39 | PN ---
Progress Note, Physician - Current Medication List Current Medications: Active Medications Cholecalciferol (Vitamin D3 -) 1,000 unit PO DAILY [facility] Last Admin: 09/03/17 10:07 Dose: 1,000 unit Donepezil HCl (Aricept -) 10 mg PO HS [facility] Last Admin: 09/03/17 21:48 Dose: 10 mg Emollient Ointment (Aquaphor -) 1 applic TP BID [facility] Last Admin: 09/03/17 21:49 Dose: 1 applic Escitalopram Oxalate (Lexapro -) 10 mg PO DAILY [facility] Last Admin: 09/03/17 10:07 Dose: 10 mg Sodium Chloride (Normal Saline -) 1,000 mls @ 75 mls/hr IV ASDIR [facility] Last Admin: 09/03/17 21:47 Dose: 75 mls/hr Lorazepam (Ativan -) 1 mg PO PC [facility] Last Admin: 09/03/17 18:11 Dose: 1 mg Melatonin (Melatonin) 3 mg PO HS [facility] Last Admin: 09/03/17 21:48 Dose: 3 mg Non-Formulary Medication (Memantine Hcl [Namenda Xr]) 28 mg PO DAILY [facility] Non-Formulary Medication (Methyl Salicylate/Menth/Camph [Muscle Rub Ultra Str Cream]) 120 gm TP DAILY [facility] Pantoprazole Sodium (Protonix -) 20 mg PO DAILY [facility] Trazodone HCl (Desyrel -) 25 mg PO DAILY [facility] Last Admin: 09/03/17 10:06 Dose: 25 mg - Objective Vital Signs: Vital Signs Temperature 98.7 F 09/04/17 05:59 Pulse Rate 73 09/04/17 05:59 Respiratory Rate 20 09/04/17 05:59 Blood Pressure 115/61 09/04/17 05:59 O2 Sat by Pulse Oximetry (%) 97 09/03/17 21:00 Labs: CBC, BMP 09/03/17 07:21 09/03/17 07:21 INR, PTT INR 1.07 (0.82-1.09) 09/02/17 07:18 Problem List - Problems (1) Coffee ground emesis Code(s): K92.0 - HEMATEMESIS (2) Upper GI bleed Code(s): K92.2 - GASTROINTESTINAL HEMORRHAGE, UNSPECIFIED (3) Dementia Code(s): F03.90 - UNSPECIFIED DEMENTIA WITHOUT BEHAVIORAL DISTURBANCE
--- NOTE | 2017-09-04 09:44 | DS ---
Physical Examination Vital Signs: Vital Signs Temperature 98.7 F 09/04/17 05:59 Pulse Rate 73 09/04/17 05:59 Respiratory Rate 20 09/04/17 05:59 Blood Pressure 115/61 09/04/17 05:59 O2 Sat by Pulse Oximetry (%) 97 09/03/17 21:00 Constitutional: Yes: No Distress, Calm Cardiovascular: Yes: Regular Rate and Rhythm Respiratory: Yes: CTA Bilaterally Gastrointestinal: Yes: Normal Bowel Sounds, Soft. No: Tenderness Edema: No Labs: CBC, BMP 09/03/17 07:21 09/03/17 07:21 Discharge Summary Reason For Visit: UPPER GASTROINTESTINAL HEMORRHAGE Current Active Problems Coffee ground emesis (Acute) Dementia (Acute) Paraesophageal hernia (Acute) Upper GI bleed (Acute) Hospital Course: Admitted for GI bleeding Seen by GI -- Ct abdomen done-- shows paraesophageal hernia-- Seen by Surgeon-- family does not want surgery-- conservative only EGD-- no ulcers, has hiatal hernia Small meals advised Protonix to continue CBC stable stable for dc to [place] - Instructions Referrals: Rylan Johnston DO [Staff Physician] - Shankar Arreguin [Primary Care Provider] - - Home Medications Comprehensive Discharge Medication List: Ambulatory Orders Acetaminophen [Tylenol] 650 mg PO Q6H PRN 09/02/17 Cholecalciferol (Vitamin D3) [Vitamin D3] 1,000 unit PO DAILY 09/02/17 Donepezil HCl [Aricept -] 10 mg PO HS 09/02/17 Escitalopram Oxalate [Lexapro -] 10 mg PO DAILY 09/02/17 LORazepam [Ativan] 1 mg PO PC 09/02/17 Melatonin 3 mg PO HS 09/02/17 Memantine HCl [Namenda Xr] 28 mg PO DAILY 09/02/17 Methyl Salicylate/Menth/Camph [Muscle Rub Ultra Str Cream] 120 gm TP DAILY 09/02 Mineral Oil/Hydrophil Petrolat [Aquaphor Ointment] 396 gm TP BID 09/02/17 Trazodone HCl 25 mg PO DAILY 09/02/17
[2017-09-04] MEDS: LORazepam 1 MG TABLET PO SCH (09:48)
[2017-09-04] MEDS: CHOLECALCIFEROL (VITAMIN D3) 1,000 UNIT TABLET (FP) PO SCH (09:48)
[2017-09-04] MEDS: ESCITALOPRAM OXALATE 10 MG TABLET (FP) PO SCH (09:49)
[2017-09-04] MEDS: MINERAL OIL/PET HY-PHL TOPICAL OINTMENT 454 GM JAR TP SCH (09:49)
[2017-09-04] MEDS: traZODone HCL 50 MG TABLET (FP) PO SCH (09:49)
[2017-09-04] MEDS ORDERED: PANTOPRAZOLE 20 MG TABLET (FP) PO SCH (10:00)
[2017-09-04 10:28] LABS: HEMATOCRIT 37.9 % (32.4-45.2); HEMOGLOBIN 12.4 GM/dL (10.7-15.3); MCH 30.2 pg (25.7-33.7); MCHC 32.7 g/dl (32.0-36.0); MEAN CELL VOLUME 92.4 fl (80-96); MEAN PLT VOLUME 8.1 fl (7.5-11.1); PLATELET COUNT 183 K/MM3 (134-434); RDW 14.1 % (11.6-15.6); WHITE BLOOD COUNT 6.1 K/mm3 (4.0-10.0)
[2017-09-04 15:18] VITALS: BP 114/57; PULSE 58; TEMP 97.8
== END 2017-09-04 16:25 | DRG 392 ==
LOC: JER 18:07 → JERBED 22:36 → J6S 09-02 15:48
PROVIDERS: ADMIT Internal Medicine; ATTEND Internal Medicine
PROC: 0DJ08ZZ Inspection of Upper Intestinal Tract, Via Natural or Artificial Opening Endoscopic (ICD-10-PCS; principal; 2017-09-03 12:00)
DX: K44.9 Diaphragmatic hernia without obstruction or gangrene (principal); K92.0 Hematemesis; K92.2 Gastrointestinal hemorrhage, unspecified; G30.9 Alzheimer's disease, unspecified; F02.80 Dementia in other diseases classified elsewhere, unspecified severity, without behavioral disturbance, psychotic disturbance, mood disturbance, and anxiety; F41.8 Other specified anxiety disorders; Z66 Do not resuscitate; R13.10 Dysphagia, unspecified; G47.09 Other insomnia; Z85.3 Personal history of malignant neoplasm of breast; Z87.891 Personal history of nicotine dependence; K29.80 Duodenitis without bleeding
CPT/HCPCS: 36415; 71045-TC-FY; 71250-TC; 74176-TC; 80053; 82272; 83735; 84100; 85025; 85027; 85610; 85730; 86850; 86900; 86901; 93005; 93010; 99285-25

== ENCOUNTER 2017-10-28 16:43 | Observation (INO) | payer OTHER, BC ==
[2017-10-28 17:05] VITALS: BMI 25.7
[2017-10-28] MEDS ORDERED: SODIUM CHLORIDE 1,000 ML IV STA (17:41)
--- NOTE | 2017-10-28 17:59 | PDOC ---
Attending Attestation - Resident Resident Name: Ilya Corrales - ED Attending Attestation I have performed the following: I have examined & evaluated the patient, The case was reviewed & discussed with the resident, I agree w/resident's findings & plan, Exceptions are as noted - HPI HPI: 10/28/17 17:56 77 yo female BIBA from [facility] for coffee ground emesis. PMH significant for GI bleed in Aug 2017. para esophageal hernia and family wanted no surgery only conservative measures - Physicial Exam PE: 10/29/17 01:[address] Corrales's PE - Medical Decision Making 10/29/17 01:54 Patient was admitted because she had 3 episodes of coffee-ground emesis despite being on Protonix chronically. Dr. Everett requested her admission and she will be admitted to [facility]
[2017-10-28 18:02] LABS: HEMATOCRIT 43.4 % (32.4-45.2); HEMOGLOBIN 14.4 GM/dL (10.7-15.3); MCH 30.7 pg (25.7-33.7); MCHC 33.2 g/dl (32.0-36.0); MEAN CELL VOLUME 92.7 fl (80-96); MEAN PLT VOLUME 8.7 fl (7.5-11.1); PLATELET COUNT 253 K/MM3 (134-434); RBC 4.68 M/mm3 (3.60-5.2); RDW 14.1 % (11.6-15.6)
--- NOTE | 2017-10-28 18:10 | PDOC ---
History of Present Illness - General Chief Complaint: Nausea/Vomiting Stated Complaint: VOMITING Time Seen by Provider: 10/28/17 17:10 History Source: Patient - History of Present Illness Initial Comments: 10/28/17 18:04 Ms. Morgan is a 76 yo female w/ pmh of severe dementia, alzheimer's, anxiety, and major depressive disorder who presents from [facility] after reported unknown number of episodes of coffee-ground earlier today. Patient currently asymptomatic. Was admitted and evaluated in this ED in August for the same symptoms and was found to have a large paraesophageal hernia. Family had declined surgery and patient was discharged on Protonix. Was sent by Dr. Everett to be admitted under dr. Alexander. Past History - Past Medical History Allergies/Adverse Reactions: Allergies Allergy/AdvReac Type Severity Reaction Status Date / Time No Known Allergies Allergy Verified 09/01/17 20:12 Home Medications: Ambulatory Orders Acetaminophen [Tylenol] 650 mg PO Q6H PRN 09/02/17 Cholecalciferol (Vitamin D3) [Vitamin D3] 1,000 unit PO DAILY 09/02/17 Donepezil HCl [Aricept -] 10 mg PO HS 09/02/17 Escitalopram Oxalate [Lexapro -] 10 mg PO DAILY 09/02/17 LORazepam [Ativan] 1 mg PO PC 09/02/17 Melatonin 3 mg PO HS 09/02/17 Memantine HCl [Namenda Xr] 28 mg PO DAILY 09/02/17 Methyl Salicylate/Menth/Camph [Muscle Rub Ultra Str Cream] 120 gm TP DAILY 09/02 Mineral Oil/Hydrophil Petrolat [Aquaphor Ointment] 396 gm TP BID 09/02/17 Pantoprazole Sodium [Protonix -] 20 mg PO DAILY #20 tablet.ec 09/04/17 Anemia: No Asthma: No Cancer: Yes (Breast) Cardiac Disorders: No CVA: No COPD: No DVT: No Dementia: Yes (Alzheimer's) Diabetes: No Dialysis: No GI Disorders: No Disorders: No HTN: No Hypercholesterolemia: No Kidney Stones: No Liver Disease: No Psychiatric Problems: Yes (Depression, Insomnia, Anxiety) Seizures: No Thyroid Disease: No Lung CA: No - Immunization History Immunization Up to Date: Yes - Suicide/Smoking/Psychosocial Hx Smoking History: Never smoked Have you smoked in the past 12 months: No Information on smoking cessation initiated: No Hx Alcohol Use: No Drug/Substance Use Hx: No Substance Use Type: None Review of Systems - Review of Systems Able to Perform ROS?: No (severe dementia) *Physical Exam - Vital Signs Last Vital Signs Temp Pulse Resp BP Pulse Ox 97.9 F 90 16 124/86 97 10/28/17 16:43 10/28/17 16:43 10/28/17 16:43 10/28/17 16:43 10/28/17 16:43 - Physical Exam General Appearance: Yes: Nourished, Appropriately Dressed. No: Apparent Distress HEENT: positive: EOMI, JOVON (pinpoint pupils) Neck: negative: Tender Respiratory/Chest: positive: Lungs Clear, Normal Breath Sounds. negative: Chest Tender, Respiratory Distress Cardiovascular: positive: Regular Rhythm, Regular Rate, S1, S2 Gastrointestinal/Abdominal: positive: Normal Bowel Sounds, Flat, Soft. negative : Tender Integumentary: negative: Bruising Neurologic: positive: Alert, Confused, Disoriented ED Treatment Course - LABORATORY CBC & Chemistry Diagram: 10/28/17 17:30 10/28/17 17:51 - RADIOLOGY Radiology Studies Ordered: Category Date Time Status CHEST X-RAY PORTABLE* [RAD] Stat Radiology 10/28/17 17:31 Ordered Medical Decision Making - Medical Decision Making 10/28/17 18:13 Repeat episode of coffee ground emesis due to paraesophargeoal hernia. Will assess anemia with basic labs 10/28/17 19:45 No anemia noted. H/H similar to labs drawn on 10/14 at [facility]. Will admit to hospitalist for observation. 10/28/17 19:48 Spoke to Patient's son about plan. Noted failure to thrive for the past week. *DC/Admit/Observation/Transfer Diagnosis at time of Disposition: Upper GI bleed, Paraesophageal hernia - Discharge Dispostion Admit: Yes - Referrals - Patient Instructions - Post Discharge Activity
[2017-10-28] MEDS ORDERED: PANTOPRAZOLE SODIUM 40 MG VIAL IVPUSH ONE (18:14)
[2017-10-28 18:24] LABS: ALBUMIN 3.4 g/dl (3.4-5.0); ANION GAP 5 (8-16); BILIRUBIN,TOTAL 0.3 mg/dL (0.2-1.0); BLOOD UREA NITROGEN 16 mg/dL (7-18); CALCIUM 8.5 mg/dL (8.5-10.1); CHLORIDE 106 mmol/L (98-107); CO2 31 mmol/L (21-32); CREATININE 0.9 mg/dL (0.55-1.02); GLUCOSE,RANDOM 156 mg/dL (74-106); POTASSIUM 3.9 mmol/L (3.5-5.1); SGOT/AST 14 U/L (15-37); SGPT/ALT 18 U/L (12-78); SODIUM 142 mmol/L (136-145); TOT PROT 6.6 g/dl (6.4-8.2)
[2017-10-28 18:25] LABS: ALK PHOS 68 U/L (45-117)
[2017-10-28] MEDS ORDERED: PANTOPRAZOLE SODIUM 40 MG/100 ML BAG IVPB ONE (18:37)
[2017-10-28 19:08] LABS: PLATELET ESTIMATE ADEQUATE
[2017-10-28] MEDS: DEXTROSE 5%-0.45% SALINE 1,000 ML IV SCH (20:47)
[2017-10-28 21:16] LABS: URINE APPEARANCE CLOUDY; URINE BILIRUBIN NEGATIVE (<2.0 mg/dL); URINE BLOOD NEGATIVE (NEGATIVE); URINE COLOR YELLOW; URINE GLUCOSE (UA) NEGATIVE (NEGATIVE); URINE KETONE NEGATIVE (NEGATIVE); URINE LEUK ESTERASE NEGATIVE (NEGATIVE); URINE NITRITE NEGATIVE (NEGATIVE)
[2017-10-28 21:18] LABS: URINE PROTEIN 1+ (NEGATIVE)
[2017-10-28 21:23] LABS: EPI CELLS RARE /HPF (FEW); URINE MUCUS RARE
--- NOTE | 2017-10-29 00:23 | HP ---
CHIEF COMPLAINT: Coffee Ground Emesis PCP: Dr Campa HISTORY OF PRESENT ILLNESS: This is a 77 y/o woman PMH Dementia, Alzheimer's, Anxiety, MDD, Breast Ca ( remission, 2016). Who presents to the ED from [facility] for evaluation of coffee ground emesis. Patient's son, at bedside, reports recent admission 08/2017 for same- large paraesophageal hernia. The family at the time declined surgical intervention. The son reports that the patient's appetite has decreased recently and that she is losing weight. He also states" my mom has fallen twice last week and is now using the wheelchair. The patient denies abdominal pain. Denies fever, chills, SOB, limited HPI secondary to Dementia ER course was notable for: (1) WBC 13.0, L- shift (2) (3) Recent Travel: None PAST MEDICAL HISTORY: See HPI PAST SURGICAL HISTORY: See HPI Social History: Smoking:Former Alcohol: None Drugs: None Resides at [facility] Family History: Non-contributory Allergies No Known Allergies Allergy (Verified 09/01/17 20:12) HOME MEDICATIONS: Home Medications Medication Instructions Recorded Acetaminophen [Tylenol] 650 mg PO Q6H PRN 09/02/17 Cholecalciferol (Vitamin D3) 1,000 unit PO DAILY 09/02/17 [Vitamin D3] Donepezil HCl [Aricept -] 10 mg PO HS 09/02/17 Escitalopram Oxalate [Lexapro -] 10 mg PO DAILY 09/02/17 LORazepam [Ativan] 1 mg PO PC 09/02/17 Melatonin 3 mg PO HS 09/02/17 Memantine HCl [Namenda Xr] 28 mg PO DAILY 09/02/17 Methyl Salicylate/Menth/Camph 120 gm TP DAILY 09/02/17 [Muscle Rub Ultra Str Cream] Mineral Oil/Hydrophil Petrolat 396 gm TP BID 09/02/17 [Aquaphor Ointment] Pantoprazole Sodium [Protonix -] 20 mg PO DAILY #20 tablet.ec 09/04/17 REVIEW OF SYSTEMS CONSTITUTIONAL: loss of appetite, weight change Absent: fever, chills, diaphoresis, generalized weakness, malaise HEENT: Absent: rhinorrhea, nasal congestion, throat pain, throat swelling, difficulty swallowing, mouth swelling, ear pain, eye pain, visual changes CARDIOVASCULAR: Absent: chest pain, syncope, palpitations, irregular heart rate, lightheadedness , peripheral edema RESPIRATORY: Absent: cough, shortness of breath, dyspnea with exertion, orthopnea, wheezing, stridor, hemoptysis GASTROINTESTINAL: coffee ground emesis Absent: abdominal pain, abdominal distension, nausea, diarrhea, constipation, melena, hematochezia GENITOURINARY: Absent: dysuria, frequency, urgency, hesitancy, hematuria, flank pain, genital pain MUSCULOSKELETAL: Absent: myalgia, arthralgia, joint swelling, back pain, neck pain SKIN: Absent: rash, itching, pallor HEMATOLOGIC/IMMUNOLOGIC: Absent: easy bleeding, easy bruising, lymphadenopathy, frequent infections ENDOCRINE: Absent: unexplained weight gain, unexplained weight loss, heat intolerance, cold intolerance NEUROLOGIC: unsteady gait Absent: headache, focal weakness or paresthesias, dizziness, seizure, mental status changes, bladder or bowel incontinence PSYCHIATRIC: Absent: anxiety, depression, suicidal or homicidal ideation, hallucinations. PHYSICAL EXAMINATION Vital Signs - 24 hr 10/28/17 10/28/17 10/28/17 16:43 20:34 22:59 Temperature 97.9 F 98.0 F Pulse Rate 90 Pulse Rate [ 81 Apical] Respiratory 16 16 Rate Blood Pressure 124/86 Blood Pressure 112/86 [Right Arm] O2 Sat by Pulse 97 98 98 Oximetry (%) GENERAL: Awake- at baseline, in no acute distress. HEAD: Normal with no signs of trauma. EYES: Pupils equal, round and reactive to light, extraocular movements intact, sclera anicteric, conjunctiva clear. No lid lag. EARS, NOSE, THROAT: Ears normal, nares patent, oropharynx clear without exudates. Dry mucous membranes. NECK: Normal range of motion, supple without lymphadenopathy, JVD, or masses. LUNGS: Breath sounds equal, clear to auscultation bilaterally. No wheezes, and no crackles. No accessory muscle use. HEART: Regular rate and rhythm, normal S1 and S2 without murmur, rub or gallop. ABDOMEN: Soft, nontender, not distended, hypoactive bowel sounds, no guarding, no rebound, no masses. No hepatomegaly or splenomegaly. MUSCULOSKELETAL: Normal range of motion at all joints. No bony deformities or tenderness. No CVA tenderness. UPPER EXTREMITIES: 2+ pulses, warm, well-perfused. No cyanosis. No clubbing. No peripheral edema. LOWER EXTREMITIES: 2+ pulses, warm, well-perfused. No calf tenderness. No peripheral edema. NEUROLOGICAL: Cranial nerves II-XII intact. Repetitive speech. Gait not observed. PSYCHIATRIC: Cooperative. Good eye contact. Appropriate mood and affect. SKIN: Warm, dry, normal turgor, no rashes or lesions noted, normal capillary refill. Laboratory Results - last 24 hr 10/28/17 10/28/17 10/28/17 17:30 17:30 17:51 WBC 13.0 H D RBC 4.68 Hgb 14.4 D Hct 43.4 MCV 92.7 MCH 30.7 MCHC 33.2 RDW 14.1 Plt Count 253 D MPV 8.7 Neutrophils % (Manual) 91.0 H* Band Neutrophils % 2.0 Lymphocytes % (Manual) 5.0 L Monocytes % (Manual) 2 L Platelet Estimate Adequate Platelet Comment No clumping noted Sodium 142 Potassium 3.9 Chloride 106 Carbon Dioxide 31 Anion Gap 5 L BUN 16 Creatinine 0.9 Creat Clearance w eGFR > 60 Random Glucose 156 H Calcium 8.5 Total Bilirubin 0.3 D AST 14 L ALT 18 Alkaline Phosphatase 68 Total Protein 6.6 Albumin 3.4 Urine Color Urine Appearance Urine pH Ur Specific [place] Urine Protein Urine Glucose (UA) Urine Ketones Urine Blood Urine Nitrite Urine Bilirubin Urine Urobilinogen Ur Leukocyte Esterase Urine WBC (Auto) Urine RBC (Auto) Ur Epithelial Cells Urine Mucus Blood Type O POSITIVE Antibody Screen Negative 10/28/17 21:12 WBC RBC Hgb Hct MCV MCH MCHC RDW Plt Count MPV Neutrophils % (Manual) Band Neutrophils % Lymphocytes % (Manual) Monocytes % (Manual) Platelet Estimate Platelet Comment Sodium Potassium Chloride Carbon Dioxide Anion Gap BUN Creatinine Creat Clearance w eGFR Random Glucose Calcium Total Bilirubin AST ALT Alkaline Phosphatase Total Protein Albumin Urine Color Yellow Urine Appearance Cloudy Urine pH 8.0 Ur Specific [place] 1.019 Urine Protein 1+ H Urine Glucose (UA) Negative Urine Ketones Negative Urine Blood Negative Urine Nitrite Negative Urine Bilirubin Negative Urine Urobilinogen 2.0 H Ur Leukocyte Esterase Negative Urine WBC (Auto) <1 Urine RBC (Auto) 3 Ur Epithelial Cells Rare Urine Mucus Rare Blood Type Antibody Screen ASSESSMENT/PLAN: 77 y/o woman placed on Observation for UGI Bleed, Failure to Thrive. Plan: 1. ?Upper GI Bleed - retirement staff reported patient having an episode of coffee ground emesis , patient has had no episodes in ED - hx of Upper GI Bleed, paraesophageal hernia - On exam- abdomen benign - H/H, vitals- wnl - Will repeat CBC and BMP in am - Will continue gentle IVF - Consider US or CT if condition worsens - Monitor vitals - NPO 2. Failure to Thrive - Likely due to advance Dementia/Alzheimer's vs MDD - Albumin- wnl - RD consult- nutritional eval - Swallow eval - IVF - Consider appetite stimulant 3. Dementia/Alzheimer's - Continue Namenda - Fall precautions 4. MDD/Anxiety - Continue Lexapro, Ativan 5. Breast Ca - completed chemo (remission. 2015) 6. Frequent Falls - Likely secondary to advance disease process - PT- gait strengthening, conditioning - Fall Precautions 7. FEN - D51/2NS@42cc/hr - Replete lyte prn - NPO 8. DVT ppx - OOB - SCDs - Consider AC if LOS > 48hrs Code Status: DNR Dispo: Observation Problem List - Problem (1) Coffee ground emesis Code(s): K92.0 - HEMATEMESIS (2) Paraesophageal hernia Code(s): K44.9 - DIAPHRAGMATIC HERNIA WITHOUT OBSTRUCTION OR GANGRENE (3) Decrease in appetite Code(s): R63.0 - ANOREXIA (4) Failure to thrive in adult Code(s): R62.7 - ADULT FAILURE TO THRIVE (5) Dementia Code(s): F03.90 - UNSPECIFIED DEMENTIA WITHOUT BEHAVIORAL DISTURBANCE (6) Anxiety Code(s): F41.9 - ANXIETY DISORDER, UNSPECIFIED (7) MDD (major depressive disorder) Code(s): F32.9 - MAJOR DEPRESSIVE DISORDER, SINGLE EPISODE, UNSPECIFIED (8) Breast CA Code(s): C50.919 - MALIGNANT NEOPLASM OF UNSP SITE OF UNSPECIFIED FEMALE BREAST (9) DVT prophylaxis Code(s): [id number] - Visit type - Emergency Visit Emergency Visit: Yes ED Registration Date: 10/28/17 Care time: The patient presented to the Emergency Department on the above date and was hospitalized for further evaluation of their emergent condition. - New Patient This patient is new to me today: Yes Date on this admission: 10/28/17 - Critical Care Critical Care patient: No Hospitalist Screening - Colonoscopy Questionnaire Colonoscopy Questionnaire: Colonoscopy Questionnaire - Patient: 50 - 75 years old and never had a screening colonoscopy: Unknown History of colon or rectal polyps, or CA: Unknown History of IBD, Crohn's disease or UC: Unknown History of abdominal radiation therapy as a child: Unknown - Relative: 1 with colon or rectal CA, or polyps at age 60 or younger: Unknown Colon or rectal CA diagnosed at age 45 or younger: Unknown Multiple relatives with colon or rectal CA: Unknown - Outcome: Screening Result: Negative Screen
[2017-10-29 08:01] LABS: BASO % 1.2 % (0-2.0); EOS % 1.3 % (0-4.5); HEMATOCRIT 36.5 % (32.4-45.2); HEMOGLOBIN 12.1 GM/dL (10.7-15.3); LYMPH % 18.4 % (8-40); MCH 30.6 pg (25.7-33.7); MCHC 33.1 g/dl (32.0-36.0); MEAN CELL VOLUME 92.3 fl (80-96); MEAN PLT VOLUME 8.4 fl (7.5-11.1); MONO % 9.2 % (3.8-10.2); NEUT % 69.9 % (42.8-82.8); PLATELET COUNT 204 K/MM3 (134-434); RBC 3.95 M/mm3 (3.60-5.2); RDW 14.2 % (11.6-15.6); WHITE BLOOD COUNT 9.2 K/mm3 (4.0-10.0)
[2017-10-29 08:30] LABS: ANION GAP 3 (8-16); BLOOD UREA NITROGEN 12 mg/dL (7-18); CALCIUM 7.8 mg/dL (8.5-10.1); CHLORIDE 111 mmol/L (98-107); CO2 31 mmol/L (21-32); GLUCOSE,RANDOM 89 mg/dL (74-106); SODIUM 145 mmol/L (136-145)
[2017-10-29 08:31] LABS: CREATININE 0.7 mg/dL (0.55-1.02)
--- NOTE | 2017-10-29 09:29 | EKG ---
Test Reason : Blood Pressure : / mmHG Vent. Rate : 094 BPM Atrial Rate : 094 BPM P-R Int : 152 ms QRS Dur : 082 ms QT Int : 362 ms P-R-T Axes : 015 016 -07 degrees QTc Int : 452 ms NORMAL SINUS RHYTHM POSSIBLE INFERIOR INFARCT , AGE UNDETERMINED ABNORMAL ECG WHEN COMPARED WITH ECG OF 01-SEP-2017 23:44, NO SIGNIFICANT CHANGE WAS FOUND Confirmed by MALENA BARAHONA, SUSIE ([id number]) on 10/29/2017 9:29:25 AM Referred By: Confirmed By:SUSIE GUY MD
[2017-10-29] MEDS ORDERED: PANTOPRAZOLE SODIUM 40 MG VIAL IVPUSH SCH (10:00)
--- NOTE | 2017-10-29 12:49 | PN ---
Progress Note (short form) - Note Progress Note: Events noted no vomiting here pt refusing to drink or eat advanced dementia , echolalia Vital Signs - 24 hr 10/28/17 10/28/17 10/29/17 20:34 22:59 02:12 Temperature 98.0 F 98.9 F Pulse Rate 75 Pulse Rate [ 81 Apical] Respiratory 16 22 Rate Blood Pressure 112/56 Blood Pressure 112/86 [Right Arm] O2 Sat by Pulse 98 98 Oximetry (%) 10/29/17 10/29/17 10/29/17 02:20 06:00 10:00 Temperature 98.8 F 98.7 F Pulse Rate 668 H 70 Pulse Rate [ Apical] Respiratory 20 20 Rate Blood Pressure 98/59 100/60 Blood Pressure [Right Arm] O2 Sat by Pulse 97 Oximetry (%) 10/29/17 10/29/17 12:00 14:21 Temperature 98.4 F Pulse Rate 82 Pulse Rate [ Apical] Respiratory 18 Rate Blood Pressure 120/73 Blood Pressure [Right Arm] O2 Sat by Pulse 94 L Oximetry (%) Current Medications Generic Name Dose Route Start Last Admin Trade Name Freq PRN Reason Stop Dose Admin Dextrose/Sodium Chloride 1,000 mls @ 42 mls/hr 10/28/17 20:45 10/28/17 20:47 D5-1/2ns - IV 42 mls/hr ASDIR VIC Administration Pantoprazole Sodium 40 mg 10/29/17 10:00 10/29/17 11:26 Protonix Iv IVPUSH 40 mg DAILY VIC Administration Laboratory Results - last 24 hr 10/28/17 10/28/17 10/28/17 17:30 17:30 17:51 WBC 13.0 H D RBC 4.68 Hgb 14.4 D Hct 43.4 MCV 92.7 MCH 30.7 MCHC 33.2 RDW 14.1 Plt Count 253 D MPV 8.7 Neutrophils % Neutrophils % (Manual) 91.0 H* Band Neutrophils % 2.0 Lymphocytes % Lymphocytes % (Manual) 5.0 L Monocytes % Monocytes % (Manual) 2 L Eosinophils % Basophils % Platelet Estimate Adequate Platelet Comment No clumping noted Sodium 142 Potassium 3.9 Chloride 106 Carbon Dioxide 31 Anion Gap 5 L BUN 16 Creatinine 0.9 Creat Clearance w eGFR > 60 Random Glucose 156 H Calcium 8.5 Total Bilirubin 0.3 D AST 14 L ALT 18 Alkaline Phosphatase 68 Total Protein 6.6 Albumin 3.4 Urine Color Urine Appearance Urine pH Ur Specific [place] Urine Protein Urine Glucose (UA) Urine Ketones Urine Blood Urine Nitrite Urine Bilirubin Urine Urobilinogen Ur Leukocyte Esterase Urine WBC (Auto) Urine RBC (Auto) Ur Epithelial Cells Urine Mucus Blood Type O POSITIVE Antibody Screen Negative 10/28/17 10/29/17 10/29/17 21:12 07:52 07:52 WBC 9.2 RBC 3.95 Hgb 12.1 D Hct 36.5 D MCV 92.3 MCH 30.6 MCHC 33.1 RDW 14.2 Plt Count 204 MPV 8.4 Neutrophils % 69.9 Neutrophils % (Manual) Band Neutrophils % Lymphocytes % 18.4 D Lymphocytes % (Manual) Monocytes % 9.2 Monocytes % (Manual) Eosinophils % 1.3 D Basophils % 1.2 Platelet Estimate Platelet Comment Sodium 145 Potassium 4.0 Chloride 111 H Carbon Dioxide 31 Anion Gap 3 L BUN 12 Creatinine 0.7 Creat Clearance w eGFR Random Glucose 89 Calcium 7.8 L Total Bilirubin AST ALT Alkaline Phosphatase Total Protein Albumin Urine Color Yellow Urine Appearance Cloudy Urine pH 8.0 Ur Specific [place] 1.019 Urine Protein 1+ H Urine Glucose (UA) Negative Urine Ketones Negative Urine Blood Negative Urine Nitrite Negative Urine Bilirubin Negative Urine Urobilinogen 2.0 H Ur Leukocyte Esterase Negative Urine WBC (Auto) <1 Urine RBC (Auto) 3 Ur Epithelial Cells Rare Urine Mucus Rare Blood Type Antibody Screen S1 S2 RRR Lungs clear Abd- soft, NT No edema A/P Upper GI bleed Dementia-- advanced Dehydration -- no signs or symptoms of infectious source -- iv fluids -- protonix -- likely dehydrated -- GI eval -- spoke with daughter-- I read through pt's HCP, power of staff attorney, DNR papers -- pt is DNR, did not want artificial nutrition -- palliative eval -- start full liquid diet
--- NOTE | 2017-10-29 16:07 | CONSULT ---
Admitting History and Physical - Past Medical History Psych: Yes: Anxiety, Depression - Advance Directives Advance Directives: Yes: DNR - Smoking History Smoking history: Never smoked Have you smoked in the past 12 months: No - Alcohol/Substance Use Hx Alcohol Use: No History of Substance Use: reports: None - Social History ADL: Support Services History of Recent Travel: No History - Admission Reason For Visit: DEMENTIA,COFFEE GROUNDEMESIS PARAESOPHAGEAL HERNIA - Hearing Hearing: Normal Hearing Aide: No With Patient: No Speech Evaluation - Communication Primary Language: ARABIC Communication: Yes: Within Normal Limits, Simple Responses (secondary to advanced dementia) - Speech Production Apraxia: No Able to Make Needs Known: Yes: Moderately Impaired (unreliable responses.) Intelligibility: Yes: WNL - Speech Characteristics Voice Loudness: Normal Voice Pitch: Yes: Normal Voice Phonatory-based Quality: Yes: Normal Speech Pattern: Normal Nasal Resonance: Normal Articulation: Yes: Precise Rate of Speech: Too Fast - Language/Auditory Comprehension Follows: Yes: 1 Stage Simple Commands (WFL), 2 Stage Simple Commands (WFL) Observation: Able to respond to yes/no queries: Yes (unreliable ), Yes/No Confusion: Yes, Comprehends Conversational Speech: Yes, Benefits from Slow Speech: No, Benefits from Repetiton: Yes, Benefits from Increased Volume of Speech: No - Language/Verbal Expression Able to Communicate Wants and Needs: Yes: Moderately Impaired Functional Communication Status: Yes: Moderately Impaired Aware of Errors: No Attempts to Correct Errors: No Use of Gestures: No Written Expression: not examined Oral Expression: WFL for speech but language is impaired Reading Comprehension: not examined Calculations: not examined Attention: Yes: Intact - Memory/Perception long term care social worker Memory: Yes: Moderately Impaired Short Term Memory: Yes: Moderately Impaired - Swallow Evaluation/Bedside Assessment Current Nutritional Intake: Clear Liquids Oral Secretions: Yes: WFL Tracheostomy Present: No Patient on Ventilator: No Dentition: Yes: Adequate Facial Symmetry at Rest: Symmetrical Facial Symmetry on Retraction: Symmetrical Facial Movement: Controlled Sensation: Normal Facial Comment: WFL for speech and swallowing purposes. Jaw Position: Closed at Rest Against Resistance Opening: Normal Against Resistance Closing: Normal Pucker Lips: Normal Smile: Normal Lips, Comment: WFL for speech and swallowing purposes. Lingual Movement: Normal Lingual Speed of Movement: Normal Lingual Movement Strgth Against Opposition: Normal Lingual Movement Characteristics: Normal Lingual Comment: WFL for speech and swallowing purposes. Soft Palate Description: Normal Color, Normal Arch Hard Palate Description: Normal Color, Normal Arch Gag Reflex: Strong Bite Reflex: Present Velopharyngeal Movement: Normal Laryngeal Elevation: WFL Laryngeal Movement: Able to Palpate Needs Assistance: Yes Rate of Intake: Slow/Holding Bolus Size: Small Labial Seal: WFL Chewing: WFL Oral Prep Time: WFL A-P Transit: WFL Timing of Swallow: WFL Coughing/Throat Clear: No Change in Voice: No Other Findings/Remarks: 77 yo female seen at bedside for swallow eval to rule dysphagia. Pt is verbal A &Ox1 with confusion secondary to advanced dementia. Unreliable y/n response and states that "she is fine" and "wants to go home to her parents." Pt is cooperative and able to follow some directives with verbal and gestural prompts. Pt admitted to [facility] for vomiting (emesis) from [facility] where she was consuming a mechanical soft solids and thin liquids. Chart review indicates that pt has been losing weight over the past few months and paraesophagia hernia (family does not want intervention). Pt given po trials of puree and mech soft with full assistance revealed reduced acceptance (pt refusal initially). minimal chewing, adequate transport and pharyngeal swallow appears timely. No cough before or after the swallow observed. Limited trials as patient refused. Thin liquids trials vai cup and straw with full assistance were unremarkable of dysphagia and/or aspiration at this time. Recommendations - Speech Evaluation, Impression/Plan Impression: Pt presents with mild to moderate oral preparation phase dysphagia with pureed and mechanical soft solids. No evidence of aspiration with solids and liquids at this time. Limited sample trial. Speech is WFL but language comprehension and expression are reduced secondary to advanced dementia. Mcfp Goals: tolerate the least restrictive diet without s/s of aspiration Short Term Goals: tolerate purees, mech soft and thin liquids without s/s of aspiration. - Dysphagia Impressions/Plan Swallowing Skills: Impaired (secondary to food refusal mild to moderate.) Dysphagia Impressions: Mild Impairment, Moderate Impairment, Refused PO Trials *Silent aspiration: cannot be R/O at bedside Dysphagia Treatment Plan: Small Bites, Elevate HOB during feed Dysphagia Evaluation Summary: Trial pureed solids with thin liquids as tolerated. Crush meds in puree. Encourage po intake with small meals. Monitor intake. Consider adding high calorie nutritional supplements to diet. Results given verbally to charger Regino and to pcp via chart. Recommendations: Modified Barium Swallow (consider to determine silent aspiration and esophageal emptying.), MBS w Esophagus, Other - Recommendations Diet Consistency: Dysphagia Pureed Medication Administration: Crushed with applesauce Liquids: Thin Liquids Supplement: Ensure (consider n)
--- NOTE | 2017-10-29 19:05 | PN ---
Progress Note (short form) - Note Progress Note: patient recently seen by Dr Mata 08/2017, pleae call him for further evaluation. Thank you
--- NOTE | 2017-10-29 21:22 | CON.GI ---
Consult Consult Specialty:: GI Referred by:: Dr. Hesham Campa Reason for Consultation:: Coffee Ground emesis - History of Present Illness Chief Complaint: Patient w/ dementia, Poor historian. Believes that she is here due to fall History of Present Illness: 77F transferred from [place] for coffee ground emesis. Patient has a history of dementia and tells me today that "she is here because she fell". She also said that she had pain on her left side "before" and that it went away. There has been no vomiting since admission and she denies abdominal pain. She was admitted in 08/31 for a similar presentation along with upper abdominal discomfort. CXR at the time revealed a widened mediastinum. follow-up Ct scan of the chest and abdomen revealed a large paraesophageal hernia. Upper endoscopy 09/04/17 revealed a large paraesophageal hernia altering gastric anatomy, no evidence of gastric outlet obstruction and mild duodenitis in the duodenal bulb. the coffee ground emesis at that time was felt to be secondary to retained gastric content as opposed to GI bleed. she was noted to be guaiac negative on that admission as well and colonoscopy following EGD was deferred by her family. She was evaluated by surgery Dr. Castellanos at that time as well to discuss with family correction of the symptomatic paraesophageal hernia however the family declined. Her son Amaury believes that Ms. Morgan had a colonoscopy in the past. Weight loss is described as well as Ms. Morgan refusing to eat at times. She currently denies abdominal pain. Her Hgb today is 12.1 and appears to be around her baseline. - History Source History Provided By: Patient, Family Member, Medical Record Limitations to Obtaining History: Poor Historian - Past Medical History [employer] DEVELOPER: Yes: Dementia Psych: Yes: Anxiety, Depression - Alcohol/Substance Use Hx Alcohol Use: Yes (occasional in past) History of Substance Use: reports: None - Smoking History Smoking history: Never smoked Have you smoked in the past 12 months: No - Social History Usual Living Arrangement: Long-Term ADL: Support Services History of Recent Travel: No Home Medications - Allergies Allergies/Adverse Reactions: Allergies Allergy/AdvReac Type Severity Reaction Status Date / Time No Known Allergies Allergy Verified 09/01/17 20:12 - Home Medications Home Medications: Ambulatory Orders Acetaminophen [Tylenol] 650 mg PO Q6H PRN 09/02/17 Cholecalciferol (Vitamin D3) [Vitamin D3] 1,000 unit PO DAILY 09/02/17 Donepezil HCl [Aricept -] 10 mg PO HS 09/02/17 Escitalopram Oxalate [Lexapro -] 10 mg PO DAILY 09/02/17 LORazepam [Ativan] 1 mg PO PC 09/02/17 Melatonin 3 mg PO HS 09/02/17 Memantine HCl [Namenda Xr] 28 mg PO DAILY 09/02/17 Methyl Salicylate/Menth/Camph [Muscle Rub Ultra Str Cream] 120 gm TP DAILY 09/02 Mineral Oil/Hydrophil Petrolat [Aquaphor Ointment] 396 gm TP BID 09/02/17 Pantoprazole Sodium [Protonix -] 20 mg PO DAILY #20 tablet.ec 09/04/17 Family Disease History - Family Disease History Family History: Unable to Obtain Review of Systems - Review of Systems Constitutional: denies: Chills Cardiovascular: denies: Chest Pain Gastrointestinal: reports: Abdominal Pain (states pain in LUQ previously but inconsistent with her answers), Vomiting (resolved). denies: Melena, Rectal Bleeding, Vomiting Blood Physical Exam-GI Vital Signs: Vital Signs Temperature 98.4 F 10/29/17 18:00 Pulse Rate 77 10/29/17 18:00 Respiratory Rate 20 10/29/17 18:00 Blood Pressure 132/76 10/29/17 18:00 O2 Sat by Pulse Oximetry (%) 94 L 10/29/17 12:00 Constitutional: Yes: Calm Eyes: No: Sclera Icterus Cardiovascular: Yes: Regular Rate and Rhythm. No: Murmur Respiratory: Yes: CTA Bilaterally Gastrointestinal Inspection: No: Distention, Scars ...Auscultate: Yes: Normoactive Bowel Sounds ...Palpate: No: Firm/Rigid, Tenderness ...Percussion: Yes: Other (No succussion splash). No: Tympanitic Edema: No (No LE edema) Neurological: Yes: Alert Labs: CBC, BMP 10/29/17 07:52 10/29/17 07:52 Laboratory Tests 10/28/17 10/29/17 17:30 07:52 WBC 13.0 H D 9.2 Imaging - Results X-ray: Other (Large hernia in the retrocardiac space) Problem List - Problems (1) Coffee ground vomiting Assessment/Plan: Suspect that this is secondary to Ms. Morgan's significant paraesophageal hernia. This is not a primary upper GI bleeding event. What is causing her to refuse to eat may be multifactorial. It is unclear but she has described intermittent upper abdominal pain at times so it's uncertain if this is making her afraid to eat. She also carries a diagnosis of dementia and her unwillingness to eat can reflect progression of this disease state as well. I spoke with her son Amaury who states that despite her dementia had a healthy appetite up until this past Jul/Aug. While consideration could be made to discuss correction of the hernia, there is no guarantee that it would fix her reluctancy to eat. Therefore not only would hernia repair need to be discussed with Ms. Morgan's family, but surgical G-tube placement (paraesophageal hernia precludes PEG) as well. In reading the chart it appears as though Ms. Morgan's wishes were to not be maintained through means of artificial nutrition. This will need to be clarified with the family. Dr. Castellanos evaluated Ms. Morgan on previous admission. Consider surgical evaluation to give an opinion regarding the above and discuss things with the family. Full liquid diet for now Protonix 20mg daily Code(s): K92.0 - HEMATEMESIS
[2017-10-29 22:08] LABS: INR 1.21 (0.82-1.09); PROTHROMBIN TIME (PATIENT) 13.7 SEC (9.98-11.88)
[2017-10-29] MEDS: DEXTROSE 5%-0.45% SALINE 1,000 ML IV SCH (22:17)
[2017-10-30 08:02] LABS: HEMATOCRIT 39.5 % (32.4-45.2); HEMOGLOBIN 13.1 GM/dL (10.7-15.3); MCH 30.6 pg (25.7-33.7); MCHC 33.3 g/dl (32.0-36.0); MEAN CELL VOLUME 92.1 fl (80-96); PLATELET COUNT 220 K/MM3 (134-434); RBC 4.29 M/mm3 (3.60-5.2); RDW 13.9 % (11.6-15.6); WHITE BLOOD COUNT 8.6 K/mm3 (4.0-10.0)
[2017-10-30] MEDS ORDERED: PANTOPRAZOLE 20 MG TABLET (FP) PO SCH (10:00)
--- NOTE | 2017-10-30 12:21 | PN ---
Progress Note, Physician Chief Complaint: family at bedside pt eating ice cream, jello and drinks orange juice No distress not vomiting - Current Medication List Current Medications: Active Medications Dextrose/Sodium Chloride (D5-1/2ns -) 1,000 mls @ 42 mls/hr IV ASDIR VIC Last Admin: 10/29/17 22:17 Dose: 42 mls/hr Pantoprazole Sodium (Protonix Iv) 40 mg IVPUSH DAILY [facility] - Objective Vital Signs: Vital Signs Temperature 97.7 F 10/30/17 10:00 Pulse Rate 80 10/30/17 10:00 Respiratory Rate 20 10/30/17 10:00 Blood Pressure 103/67 10/30/17 10:00 O2 Sat by Pulse Oximetry (%) 94 L 10/30/17 04:00 Constitutional: Yes: No Distress Cardiovascular: Yes: Regular Rate and Rhythm Respiratory: Yes: Diminished Gastrointestinal: Yes: Normal Bowel Sounds, Soft. No: Tenderness Edema: No Labs: CBC, BMP 10/30/17 06:30 10/29/17 07:52 INR, PTT INR 1.21 (0.82-1.09) H 10/29/17 21:00 Problem List - Problems (1) Anxiety Code(s): F41.9 - ANXIETY DISORDER, UNSPECIFIED (2) Breast CA Code(s): C50.919 - MALIGNANT NEOPLASM OF UNSP SITE OF UNSPECIFIED FEMALE BREAST (3) Coffee ground vomiting Code(s): K92.0 - HEMATEMESIS (4) Decrease in appetite Code(s): R63.0 - ANOREXIA (5) Failure to thrive in adult Code(s): R62.7 - ADULT FAILURE TO THRIVE (6) MDD (major depressive disorder) Code(s): F32.9 - MAJOR DEPRESSIVE DISORDER, SINGLE EPISODE, UNSPECIFIED (7) Paraesophageal hernia Code(s): K44.9 - DIAPHRAGMATIC HERNIA WITHOUT OBSTRUCTION OR GANGRENE Assessment/Plan PLAN HB stable continue full liquid diet-- pt prefers sweets -- check CT chest , abd/pelvis GI eval appreciated -- family declines GT placement awaiting surgical eval iv fluids add Remeron for appetite'
[2017-10-30] MEDS: PANTOPRAZOLE SODIUM 40 MG VIAL IVPUSH SCH (12:35)
--- NOTE | 2017-10-30 12:47 | CONSULT ---
<LunaNusrat ReglaJosephine - Last Filed: 10/30/17 13:37> - Consultation REQUESTING PROVIDER: CONSULT REQUEST: We have been asked to surgically evaluate this patient for paraesophageal hernia. PCP:Aston Campa HISTORY OF PRESENT ILLNESS: 77 yo female from [facility] admitted for several episodes of coffee ground emesis. Patient was recently admitted in August of 2017 for Upper GI bleed and was found to have large paraesophageal hernia. During that admission, surgical intervention and non-operative treatment options were discussed with the family (Amaury Morgan (son) is emergency contact at [phone] and daughter (Nohelia Nolan)- [phone] ) and they decided on conservative management only. Patient states she "feels fine" now and denies any nausea or abdominal pain. PMHx: paraesophageal hernia dysphagia, dementia, alzheimer's, anxiety, MDD, insomnia, malignant neoplasm of breast PSHx: Home Medications Medication Instructions Recorded Acetaminophen [Tylenol] 650 mg PO Q6H PRN 09/02/17 Cholecalciferol (Vitamin D3) 1,000 unit PO DAILY 09/02/17 [Vitamin D3] Donepezil HCl [Aricept -] 10 mg PO HS 09/02/17 Escitalopram Oxalate [Lexapro -] 10 mg PO DAILY 09/02/17 LORazepam [Ativan] 1 mg PO PC 09/02/17 Melatonin 3 mg PO HS 09/02/17 Memantine HCl [Namenda Xr] 28 mg PO DAILY 09/02/17 Methyl Salicylate/Menth/Camph 120 gm TP DAILY 09/02/17 [Muscle Rub Ultra Str Cream] Mineral Oil/Hydrophil Petrolat 396 gm TP BID 09/02/17 [Aquaphor Ointment] Pantoprazole Sodium [Protonix -] 20 mg PO DAILY #20 tablet.ec 09/04/17 Allergies Allergy/AdvReac Type Severity Reaction Status Date / Time No Known Allergies Allergy Verified 09/01/17 20:12 REVIEW OF SYSTEMS: unable to obtain 2/2 dementia PHYSICAL EXAM: GENERAL: Awake, alert, A&O to self only HEAD: Normal with no signs of trauma. EYES: sclera anicteric, conjunctiva clear. NECK: supple without lymphadenopathy, JVD, or masses. LUNGS: unlabored resp on RA, No accessory muscle use. HEART: Regular rate and rhythm. No murmurs ABDOMEN: Soft, nontender, not distended, normoactive bowel sounds, no guarding, no rebound, no masses. No organomegaly. MUSCULOSKELETAL: Normal ROM at all joints. No bony deformities or tenderness. No CVA tenderness. UPPER EXTREMITIES:moving without restriction, warm, well-perfused. NEUROLOGICAL: Normal speech, gait not observed. PSYCH: Cooperative. Good eye contact. Appropriate mood and affect. SKIN: Warm, dry, normal turgor, no rashes or lesions noted. Vital Signs Temperature 97.7 F 10/30/17 10:00 Pulse Rate 80 10/30/17 10:00 Respiratory Rate 20 10/30/17 10:00 Blood Pressure 103/67 10/30/17 10:00 O2 Sat by Pulse Oximetry (%) 94 L 10/30/17 04:00 Lab Results WBC 8.6 K/mm3 (4.0-10.0) 10/30/17 06:30 RBC 4.29 M/mm3 (3.60-5.2) 10/30/17 06:30 Hgb 13.1 GM/dL (10.7-15.3) 10/30/17 06:30 Hct 39.5 % (32.4-45.2) 10/30/17 06:30 MCV 92.1 fl (80-96) 10/30/17 06:30 MCHC 33.3 g/dl (32.0-36.0) 10/30/17 06:30 RDW 13.9 % (11.6-15.6) 10/30/17 06:30 Plt Count 220 K/MM3 (134-434) 10/30/17 06:30 Sodium 145 mmol/L (136-145) 10/29/17 07:52 Potassium 4.0 mmol/L (3.5-5.1) 10/29/17 07:52 Chloride 111 mmol/L (98-107) H 10/29/17 07:52 Carbon Dioxide 31 mmol/L (21-32) 10/29/17 07:52 Anion Gap 3 (8-16) L 10/29/17 07:52 BUN 12 mg/dL (7-18) 10/29/17 07:52 Creatinine 0.7 mg/dL (0.55-1.02) 10/29/17 07:52 Random Glucose 89 mg/dL (74-106) 10/29/17 07:52 Calcium 7.8 mg/dL (8.5-10.1) L 10/29/17 07:52 Blood Type O POSITIVE 10/28/17 17:30 Antibody Screen Negative 10/28/17 17:30 INR 1.21 (0.82-1.09) H 10/29/17 21:00 Problem List - Problems (1) Paraesophageal hernia Assessment/Plan: 1) Dr Castellanos to discuss treatment options and further management with the family this afternoon. 2) Medical optimization 3) DVT and GI prophylaxis Code(s): K44.9 - DIAPHRAGMATIC HERNIA WITHOUT OBSTRUCTION OR GANGRENE Visit type - Case Type Case Type: ED Admission - Emergency Emergency Visit: Yes ED Registration Date: 10/28/17 Care time: The patient presented to the Emergency Department on the above date and was hospitalized for further evaluation of their emergent condition. - New patient This patient is new to me today: Yes Date on this admission: 10/30/17 <Bro Castellanos - Last Filed: 10/31/17 10:19> - Consultation REQUESTING PROVIDER: CONSULT REQUEST: We have been asked to surgically evaluate this patient for ( specify). PCP:Aston Campa HISTORY OF PRESENT ILLNESS: PMHx: PSHx: Home Medications Medication Instructions Recorded Acetaminophen [Tylenol] 650 mg PO Q6H PRN 09/02/17 Cholecalciferol (Vitamin D3) 1,000 unit PO DAILY 09/02/17 [Vitamin D3] Donepezil HCl [Aricept -] 10 mg PO HS 09/02/17 Escitalopram Oxalate [Lexapro -] 10 mg PO DAILY 09/02/17 LORazepam [Ativan] 1 mg PO PC 09/02/17 Melatonin 3 mg PO HS 09/02/17 Memantine HCl [Namenda Xr] 28 mg PO DAILY 09/02/17 Methyl Salicylate/Menth/Camph 120 gm TP DAILY 09/02/17 [Muscle Rub Ultra Str Cream] Mineral Oil/Hydrophil Petrolat 396 gm TP BID 09/02/17 [Aquaphor Ointment] Pantoprazole Sodium [Protonix -] 20 mg PO DAILY #20 tablet.ec 09/04/17 Allergies Allergy/AdvReac Type Severity Reaction Status Date / Time No Known Allergies Allergy Verified 09/01/17 20:12 REVIEW OF SYSTEMS: CONSTITUTIONAL: Absent: fever, chills, diaphoresis, generalized weakness, malaise, loss of appetite, weight change CARDIOVASCULAR: Absent: chest pain, syncope, palpitations, irregular heart rate, lightheadedness , peripheral edema RESPIRATORY: Absent: cough, shortness of breath, dyspnea with exertion, wheezing, stridor, hemoptysis GASTROINTESTINAL: Absent: abdominal pain, abdominal distension, nausea, vomiting, diarrhea, constipation, melena, hematochezia GENITOURINARY: Absent: dysuria, frequency, urgency, hesitancy, hematuria, flank pain, genital pain MUSCULOSKELETAL: Absent: myalgia, arthralgia, joint swelling, back pain, neck pain SKIN: Absent: rash, itching, pallor HEMATOLOGIC/IMMUNOLOGIC: Absent: easy bleeding, easy bruising, lymphadenopathy NEUROLOGIC: Absent: headache, focal weakness, paresthesias, dizziness, unsteady gait, seizure, mental status changes, bladder or bowel incontinence PSYCHIATRIC: Absent: anxiety, depression, suicidal or homicidal ideation, hallucinations. PHYSICAL EXAM: GENERAL: Awake, alert, and fully oriented, in no acute distress. HEAD: Normal with no signs of trauma. EYES: PERRL, sclera anicteric, conjunctiva clear. NECK: Normal ROM, supple without lymphadenopathy, JVD, or masses. LUNGS: Clear to auscultation bilat anteriorly. No wheezes, and no crackles. No accessory muscle use. HEART: Regular rate and rhythm. No murmurs ABDOMEN: Soft, nontender, not distended, normoactive bowel sounds, no guarding, no rebound, no masses. No organomegaly. MUSCULOSKELETAL: Normal ROM at all joints. No bony deformities or tenderness. No CVA tenderness. UPPER EXTREMITIES: 2+ pulses, warm, well-perfused. No cyanosis. Cap refill <2 seconds. No peripheral edema. LOWER EXTREMITIES: 2+ pulses, warm, well-perfused. No calf tenderness. No peripheral edema. NEUROLOGICAL: Normal speech, gait not observed. PSYCH: Cooperative. Good eye contact. Appropriate mood and affect. SKIN: Warm, dry, normal turgor, no rashes or lesions noted. Vital Signs Temperature 98.9 F 10/31/17 06:00 Pulse Rate 77 10/31/17 06:00 Respiratory Rate 20 10/31/17 06:00 Blood Pressure 93/58 10/31/17 06:00 O2 Sat by Pulse Oximetry (%) 94 L 10/30/17 20:00 Lab Results WBC 9.8 K/mm3 (4.0-10.0) 10/31/17 09:25 RBC 4.43 M/mm3 (3.60-5.2) 10/31/17 09:25 Hgb 13.5 GM/dL (10.7-15.3) 10/31/17 09:25 Hct 40.7 % (32.4-45.2) 10/31/17 09:25 MCV 91.8 fl (80-96) 10/31/17 09:25 MCHC 33.1 g/dl (32.0-36.0) 10/31/17:25 RDW 13.6 % (11.6-15.6) 10/31/17:25 Plt Count 242 K/MM3 (134-434) 10/31/17 09:25 Sodium 145 mmol/L (136-145) 10/29/17 07:52 Potassium 4.0 mmol/L (3.5-5.1) 10/29/17 07:52 Chloride 111 mmol/L (98-107) H 10/29/17 07:52 Carbon Dioxide 31 mmol/L (21-32) 10/29/17 07:52 Anion Gap 3 (8-16) L 10/29/17 07:52 BUN 12 mg/dL (7-18) 10/29/17 07:52 Creatinine 0.7 mg/dL (0.55-1.02) 10/29/17 07:52 Random Glucose 89 mg/dL (74-106) 10/29/17 07:52 Calcium 7.8 mg/dL (8.5-10.1) L 10/29/17 07:52 Blood Type O POSITIVE 10/28/17 17:30 Antibody Screen Negative 10/28/17 17:30 INR 1.21 (0.82-1.09) H 10/29/17 21:00 Agree Presented for coffee ground emesis from Nursing facility History of paraesophageal hernia No fevers Currently no pain Hungry No further vomiting AVSS Abd soft, ND, NT,no rebound CBC, BMP 10/31/17 09:25 10/31/17 09:25 Had a long discussion with the family Want conservative management at this time F/U CT Abdomen/Pelvis/Chest
--- NOTE | 2017-10-30 15:05 | PN ---
Progress Note, SOLUTIONS ARCHITECT CONSULTANT - Note Progress Note: Confused. Intelligibility/vocal quality good. w/u for paraesophageal hernia in progress. Tolerating diet with intermittent cough noted, with and without po intake. Recent deterioration in appetite sec HH vs dementia.. Likes chocolate products. Pt may benefit from chocolate supplements, small amounts throughout the day. HOB elevated after PO intake and defer po intake within 2-3 hrs of bedtime. Pt may benefit from MBS/esoph included to further assess swallowing function and esophageal emptying.
[2017-10-30] MEDS: DEXTROSE 5%-0.45% SALINE 1,000 ML IV SCH (21:03)
[2017-10-30] MEDS: MIRTAZAPINE 15 MG TABLET (FP) PO SCH (21:04)
[2017-10-31 09:41] LABS: BASO % 0.6 % (0-2.0); EOS % 1.6 % (0-4.5); HEMATOCRIT 40.7 % (32.4-45.2); HEMOGLOBIN 13.5 GM/dL (10.7-15.3); LYMPH % 12.8 % (8-40); MCH 30.4 pg (25.7-33.7); MCHC 33.1 g/dl (32.0-36.0); MEAN CELL VOLUME 91.8 fl (80-96); MEAN PLT VOLUME 8.5 fl (7.5-11.1); MONO % 8.5 % (3.8-10.2); NEUT % 76.5 % (42.8-82.8); PLATELET COUNT 242 K/MM3 (134-434); RBC 4.43 M/mm3 (3.60-5.2); RDW 13.6 % (11.6-15.6); WHITE BLOOD COUNT 9.8 K/mm3 (4.0-10.0)
--- NOTE | 2017-10-31 09:50 | PN ---
Progress Note, Physician Chief Complaint: takes only sweets no distress no abd pain - Current Medication List Current Medications: Active Medications Al Hydroxide/Mg Hydroxide (Mylanta Suspension -) 30 ml PO TID [facility] Dextrose/Sodium Chloride (D5-1/2ns -) 1,000 mls @ 42 mls/hr IV ASDIR [facility] Last Admin: 10/30/17 21:03 Dose: 42 mls/hr Mirtazapine (Remeron -) 7.5 mg PO HS [facility] Last Admin: 10/30/17 21:04 Dose: 7.5 mg Pantoprazole Sodium (Protonix Iv) 40 mg IVPUSH DAILY [facility] Last Admin: 10/30/17 12:35 Dose: 40 mg - Objective Vital Signs: Vital Signs Temperature 98.9 F 10/31/17 06:00 Pulse Rate 77 10/31/17 06:00 Respiratory Rate 20 10/31/17 06:00 Blood Pressure 93/58 10/31/17 06:00 O2 Sat by Pulse Oximetry (%) 94 L 10/30/17 20:00 Constitutional: Yes: No Distress Cardiovascular: Yes: Regular Rate and Rhythm Respiratory: Yes: CTA Bilaterally Gastrointestinal: Yes: Normal Bowel Sounds, Soft. No: Tenderness Edema: No Labs: CBC, BMP 10/31/17 09:25 INR, PTT INR 1.21 (0.82-1.09) H 10/29/17 21:00 Problem List - Problems (1) Anxiety Code(s): F41.9 - ANXIETY DISORDER, UNSPECIFIED (2) Breast CA Code(s): C50.919 - MALIGNANT NEOPLASM OF UNSP SITE OF UNSPECIFIED FEMALE BREAST (3) Coffee ground vomiting Code(s): K92.0 - HEMATEMESIS (4) Decrease in appetite Code(s): R63.0 - ANOREXIA (5) Failure to thrive in adult Code(s): R62.7 - ADULT FAILURE TO THRIVE (6) MDD (major depressive disorder) Code(s): F32.9 - MAJOR DEPRESSIVE DISORDER, SINGLE EPISODE, UNSPECIFIED (7) Paraesophageal hernia Code(s): K44.9 - DIAPHRAGMATIC HERNIA WITHOUT OBSTRUCTION OR GANGRENE Assessment/Plan PLAN HB stable continue full liquid diet-- pt prefers sweets -- CT chest , abd/pelvis-- noted GI eval appreciated -- family declines [facility] placement surgical eval -- family wishes for conservative measures for large hiatal hernia iv fluids add Remeron for appetite
[2017-10-31 10:07] LABS: ALBUMIN 2.7 g/dl (3.4-5.0); ALK PHOS 54 U/L (45-117); ANION GAP 6 (8-16); BILIRUBIN,TOTAL 0.4 mg/dL (0.2-1.0); BLOOD UREA NITROGEN 6 mg/dL (7-18); CHLORIDE 106 mmol/L (98-107); CO2 29 mmol/L (21-32); CREATININE 0.7 mg/dL (0.55-1.02); GLUCOSE,RANDOM 101 mg/dL (74-106); SGOT/AST 13 U/L (15-37); SGPT/ALT 13 U/L (12-78); SODIUM 141 mmol/L (136-145); TOT PROT 5.3 g/dl (6.4-8.2)
[2017-10-31] MEDS: PANTOPRAZOLE SODIUM 40 MG VIAL IVPUSH SCH (10:41)
--- NOTE | 2017-10-31 11:32 | PN ---
Progress Note, SWIMMING POOL SERVICE TECHNICIAN - Note Progress Note: CT chest/surgery not reviewed. Selected Entries 10/30/17 10/30/17 10/30/17 06:00 09:14 10:00 Breakfast 0 Lunch Supper Temperature 98.9 F 97.7 F 10/30/17 10/30/17 10/30/17 14:32 18:24 18:54 Breakfast Lunch 25% Supper 25% Temperature 98.8 F 98.5 F 10/30/17 10/31/17 22:00 06:00 Breakfast Lunch Supper Temperature 98.8 F 98.9 F Pt on full fluid diet. MBS recommended if pt will cooperate to assess swallowing function/esophageal emptying and most liberal diet pt can tolerate. Family does not want anything further done, per nursing. Consider diet upgrade to puree, ice cream, Magic cup,chocolate Ensure for sufficient nutritional intake.
[2017-10-31] MEDS: MAG HYDROX/AL HYDROX/SIMETH 30 ML UNIT-DOSE CUP PO SCH ×2 (12:00→22:01)
[2017-10-31] MEDS ORDERED: SODIUM PHOSPHATE/NA BIPHOS 133 ML ENEMA PR ONE (15:03)
[2017-10-31] MEDS: AMINO ACIDS/PROTEIN HYDROLYS 30 ML LIQUID.PKT PO SCH (17:07)
[2017-10-31] MEDS: DEXTROSE 5%-0.45% SALINE 1,000 ML IV SCH (21:59)
[2017-10-31] MEDS: MIRTAZAPINE 15 MG TABLET (FP) PO SCH (22:00)
[2017-11-01] MEDS: MAG HYDROX/AL HYDROX/SIMETH 30 ML UNIT-DOSE CUP PO SCH ×2 (05:26→14:17)
[2017-11-01] MEDS: PANTOPRAZOLE SODIUM 40 MG VIAL IVPUSH SCH (10:49)
[2017-11-01] MEDS: AMINO ACIDS/PROTEIN HYDROLYS 30 ML LIQUID.PKT PO SCH (10:49)
--- NOTE | 2017-11-01 12:22 | DS ---
Physical Examination Vital Signs: Vital Signs Temperature 97.9 F 11/01/17 06:00 Pulse Rate 74 11/01/17 06:00 Respiratory Rate 18 11/01/17 06:00 Blood Pressure 99/46 11/01/17 06:00 O2 Sat by Pulse Oximetry (%) 94 L 11/01/17 04:00 Constitutional: Yes: No Distress, Calm Cardiovascular: Yes: Regular Rate and Rhythm Respiratory: Yes: Diminished Gastrointestinal: Yes: Normal Bowel Sounds, Soft. No: Palpable Mass, Tenderness Edema: No Labs: CBC, BMP 10/31/17 09:25 10/31/17 09:25 Discharge Summary Reason For Visit: DEMENTIA,COFFEE GROUNDEMESIS PARAESOPHAGEAL HERNIA Current Active Problems Anxiety (Acute) Breast CA (Acute) Coffee ground vomiting (Acute) DVT prophylaxis (Acute) Decrease in appetite (Acute) Failure to thrive in adult (Acute) MDD (major depressive disorder) (Acute) Paraesophageal hernia (Acute) Upper GI bleed (Acute) Hospital Course: Admitted for coffee ground vomiting-- Hb stable CT chest /abd/pelvis-- large hiatal hernia Pt eats only sweet food-- seen by Swallow therapist-- advised puree diet Magic cup, ensure pudding, ice creams Seen by GI and Surgeon-- family does not wish for any surgical interventions Remeron started for appetite Keep pt on pureed diet stable for dc to NH Condition: Improved - Instructions Disposition: LONG-TERM FACILITY - Home Medications Comprehensive Discharge Medication List: Ambulatory Orders Acetaminophen [Tylenol] 650 mg PO Q6H PRN 09/02/17 Cholecalciferol (Vitamin D3) [Vitamin D3] 1,000 unit PO DAILY 09/02/17 Donepezil HCl [Aricept -] 10 mg PO HS 09/02/17 Escitalopram Oxalate [Lexapro -] 10 mg PO DAILY 09/02/17 LORazepam [Ativan] 1 mg PO PC 09/02/17 Melatonin 3 mg PO HS 09/02/17 Memantine HCl [Namenda Xr] 28 mg PO DAILY 09/02/17 Methyl Salicylate/Menth/Camph [Muscle Rub Ultra Str Cream] 120 gm TP DAILY 09/02 Mineral Oil/Hydrophil Petrolat [Aquaphor Ointment] 396 gm TP BID 09/02/17 Pantoprazole Sodium [Protonix -] 20 mg PO DAILY #20 tablet.ec 09/04/17
[2017-11-01 14:36] VITALS: BP 99/59; PULSE 86; TEMP 98.2
[2017-11-02] MEDS ORDERED: PANTOPRAZOLE 20 MG TABLET (FP) PO SCH (10:00)
== END 2017-11-01 17:00 ==
LOC: JER 16:43 → J5S 19:46 → JER 10-29 01:44 → J5S 10-29 01:44 → JERBED 10-29 01:50
PROVIDERS: ADMIT Internal Medicine; ATTEND Internal Medicine
PROC: 3E033GC Introduction of Other Therapeutic Substance into Peripheral Vein, Percutaneous Approach (ICD-10-PCS; principal; 2017-10-28)
PROC: 3E0337Z Introduction of Electrolytic and Water Balance Substance into Peripheral Vein, Percutaneous Approach (ICD-10-PCS; 2017-10-28)
DX: K92.0 Hematemesis (principal); R62.7 Adult failure to thrive; K44.9 Diaphragmatic hernia without obstruction or gangrene; G30.8 Other Alzheimer's disease; F02.80 Dementia in other diseases classified elsewhere, unspecified severity, without behavioral disturbance, psychotic disturbance, mood disturbance, and anxiety; F33.9 Major depressive disorder, recurrent, unspecified; F41.9 Anxiety disorder, unspecified; R29.6 Repeated falls; E86.0 Dehydration; R63.0 Anorexia; Z85.3 Personal history of malignant neoplasm of breast; Z92.21 Personal history of antineoplastic chemotherapy
CPT/HCPCS: 36415; 71045-TC-FY; 71250-TC; 74176-TC; 80048; 80053; 81003; 81015; 85025; 85027; 85610; 86850; 86900; 86901; 87086; 93005; 93010; 96361; 96374; 96376; 99285-25; G0378; J7030